=== PATIENT | male | born 1955 | race Caucasian/White ===

== ENCOUNTER 2017-02-09 15:12 | Emergency (ER) | payer BC ==
--- OUTSIDE RECORDS SUMMARY | 2017-02-09 15:30 | XMS REPORT | Continuity of Care Document ---
:1955 Author Organization [facility] ([facility]) Address [address] [place] [address] Phone [phone] Care Team Providers Name Role Phone Unavailable Primary Care Provider Unavailable Source Comments This disclosure is being made pursuant to the Care Everywhere program, applicable federal and state laws, and may not contain all informaitonavailable regarding this patient.[facility] ([facility]) Active Allergies and Adverse Reactions Not on File Current Medications Not on file Active Problems Not on file Social History Tobacco Use Types Packs/Day Years Used Date Never Assessed Plan of Care Health Maintenance Due Date Last Done Comments HCV Screening 1955 Hepatitis B Vaccine (1 of 3 - Primary Series) 1955 Tdap Vaccine 1964 Lipid Disorder Screening 1971 Td Vaccine 1971 Colonoscopy 2003 Prostate Cancer Screening 2003 Zoster Vaccine 2013 Influenza Vaccine: Seasonal (#1) 05/05/2016 Results from Last 3 Months Not on file
--- OUTSIDE RECORDS SUMMARY | 2017-02-09 15:30 | XMS REPORT | Summary of Care ---
:[address] [facility] Address [address] [place] [id number]- Care Team Providers Name Role Phone Physician, Primary Care Primary Care Physician Unavailable Encounter Date(s): 03/03/16 - 03/04/16 [facility] [address] [place] [id number] [facility] Discharge Diagnosis: Altered mental status Final: Type 2 diabetes mellitus with hyperglycemia Final: Altered mental status, unspecified Final: Dizziness and giddiness Final: Essential (primary) hypertension Final: Morbid (severe) obesity due to excess calories Final: Body mass index (BMI) 40.0-44.9, adult Final: Dietary counseling and surveillance Final: Unspecified abnormal findings in urine Final: Nicotine dependence, unspecified, uncomplicated Discharge Disposition: [facility]Trans to Home Care with Home Health Attending Physician: Jon Blackwell MD Referring Physician: Jonathan Valderrama MD Vital Signs Most recent to oldest 1 2 3 [Reference Range]: Temperature Temporal Artery 36.6 DegC 36.4 DegC 36.4 DegC [36-38 DegC] (03/04/16 3:00 PM) (03/04/16 11:00 AM) (03/04/16 7:00 AM) Heart Rate Monitored [60-100 86 bpm 66 bpm 72 bpm bpm] (03/04/16 3:00 PM) (03/04/16 11:00 AM) (03/04/16 7:00 AM) Respiratory Rate [12-20 19 br/min 20 br/min 20 br/min br/min] (03/04/16 3:00 PM) (03/04/16 11:00 AM) (03/04/16 7:00 AM) SpO2 96 % 97 % 97 % (03/04/16 3:00 PM) (03/04/16 11:00 AM) (03/04/16 7:00 AM) SpO2 Location Right hand Right hand Right hand (03/04/16 3:00 PM) (03/04/16 11:00 AM) (03/04/16 7:00 AM) Blood Pressure [90-130/60-90 110/74mmHg 110/74mmHg 96/74mmHg mmHg] (03/04/16 5:36 PM) (03/04/16 4:21 PM) (03/04/16 3:00 PM) Mean Arterial Pressure Monitor 72 mmHg 59 mmHg 71 mmHg Measure (03/03/16 4:15 PM) (03/03/16 11:40 AM) (03/03/16 8:00 AM) Blood Pressure Location Left arm Left arm Left arm (03/04/16 3:00 PM) (03/04/16 11:00 AM) (03/04/16 7:00 AM) Most recent to oldest 1 2 3 [Reference Range]: Height/Length Measured 179 cm (03/03/16 6:12 AM) Weight Estimated 131.8 kg (03/03/16 3:25 AM) Weight Dosing 129.60 kg1 127.30 kg 127.30 kg2 (03/03/16 6:35 AM) (03/03/16 6:12 AM) (03/03/16 3:54 AM) Weight Measured 129.6 kg (03/03/16 6:12 AM) BSA Measured 2.44 m2 (03/03/16 6:12 AM) Body Mass Index Measured 40.45 kg/m2 (03/03/16 6:12 AM) 1Result Comment: This result was because the dosing weight was either not entered or it is>30 days old. This result is based off: Weight Measured March 03, 2016 06:12:00 CDT by Keisha Hdez RN2Result Comment: This result was because the dosing weight was either not entered or it is>30 days old. This result is based off: Weight Estimated March 03, 2016 03:25:00 CDT by Nina Sampson RN Problem List Condition Effective Dates Status Health Status Informant Asthma(Confirmed) Active Hypertension(Confirmed) Active Allergies, Adverse Reactions, Alerts Substance Reaction Severity Status penicillin unknown Active Medications Asmanex Twisthaler 120 Dose 220 mcg/inh inhalation aerosol powder 2 puff(s), Inhale, HS, # 1 boxes, 0 Refill(s), Start Date: 03/03/16 6:20:00 CDT Start Date: 03/03/16 Status: Orderedaspirin 81 mg oral tablet 1 tab(s), Oral, Daily, # 30 tab(s), 0 Refill(s), Start Date: 03/04/16 16:08:00 CDT Start Date: 03/04/16 Status: Orderedatenolol 50 mg, Oral, qPM, 0 Refill(s), Start Date: 03/03/16 6:09:00 CDT Start Date: 03/03/16 Status: Orderedcyclobenzaprine 10 mg, Oral, TID, PRN pain moderate 4-7, 0 Refill(s), Start Date: 03/03/16 6:13: 00 CDT Start Date: 03/03/16 Stop Date: 03/04/16 Status: DiscontinueddiphenhydrAMINE 25 mg, Oral, HS, 0 Refill(s), Start Date: 03/03/16 6:20:00 CDT Start Date: 03/03/16 Status: Ordereddocusate sodium 100 mg oral capsule 1 cap(s), Oral, HS, PRN for constipation, # 20 cap(s), 0 Refill(s), Start Date: 03/03/16 6:19:00 CDT Start Date: 03/03/16 Status: Orderedfelodipine 2.5 mg, Oral, Daily, 0 Refill(s), Start Date: 03/03/16 6:10:00 CDT Start Date: 03/03/16 Status: Orderedibuprofen 800 mg, Oral, TID, PRN pain moderate 4-7, 0 Refill(s), Start Date: 03/03/16 6:11 :00 CDT Start Date: 03/03/16 Stop Date: 03/04/16 Status: DiscontinuedLipitor 40 mg oral tablet 1 tab(s), Oral, HS, # 30 tab(s), 0 Refill(s), Start Date: 03/04/16 16:08:00 CDT Start Date: 03/04/16 Status: Orderedlisinopril 40 mg, Oral, Daily, 0 Refill(s), Start Date: 03/03/16 6:12:00 CDT Start Date: 03/03/16 Status: OrderedmetFORMIN 500 mg oral tablet 0.5 tab(s), Oral, BIDMEALS, # 30 tab(s), 0 Refill(s), Start Date: 03/04/16 16:08 :00 CDT Start Date: 03/04/16 Status: OrderedOne Touch Delica Lancets 100 EA, Subcutaneous, Daily, dx E118, # 1 boxes, 0 Refill(s), Supply Special Instructions: dx E118 Start Date: 03/04/16 Stop Date: 06/02/16 Status: OrderedOne Touch Verio IQ Test Strips 100 EA, Subcutaneous, Daily, dx E118, # 1 boxes, 0 Refill(s), Supply Special Instructions: dx E118 Start Date: 03/04/16 Stop Date: 06/02/16 Status: Orderedpantoprazole 40 mg, Oral, Daily, 0 Refill(s), Start Date: 03/03/16 6:14:00 CDT Start Date: 03/03/16 Status: OrderedSenna Lax 8.6 mg, Oral, HS, 0 Refill(s), Start Date: 03/03/16 6:17:00 CDT Start Date: 03/03/16 Status: OrderedTylenol 325 mg oral capsule 325 mg, Oral, q4hr, PRN pain mild 1-3, 0 Refill(s), Start Date: 03/04/16 16:08: 00 CDT Start Date: 03/04/16 Status: Ordered Results Patient Viewable Results Most recent to oldest [Reference Range]: 1 2 WBC [4.8-10.8 thou/mm3] 7.0 thou/mm3 (03/03/16 4:21 AM) RBC [4.60-6.00 Mil/mm3] 5.53 Mil/mm3 (03/03/16 4:21 AM) Hgb [14.0-18.0 g/dL] 15.9 g/dL (03/03/16 4:21 AM) Hct [42.0-52.0 %] 45.2 % (03/03/16 4:21 AM) MCV [80.0-94.0 fL] 81.7 fL (03/03/16 4:21 AM) MCH [25.0-38.0 pg/cell] 28.8 pg/cell (03/03/16 4:21 AM) MCHC [31.0-37.0 g/dL] 35.2 g/dL (03/03/16 4:21 AM) RDW [1.0-48.0 fL] 40.9 fL (03/03/16 4:21 AM) Platelet [130-400 thou/mm3] 182 thou/mm3 (03/03/16 4:21 AM) Neutrophils % Auto [50.0-75.0 %] 53.9 % (03/03/16 4:21 AM) Immature Granulocyte Auto [0.1-2.0 %] 0.3 % (03/03/16 4: AM) Lymphocytes % Auto [15.0-41.0 %] 37.6 % (03/03/16 4:21 AM) Monocytes % Auto [2.0-10.0 %] 6.6 % (03/03/16 4:21 AM) Eosinophils % Auto [0.0-6.0 %] 1.0 % (03/03/16 4:21 AM) Basophil % Auto [0.0-1.0 %] 0.6 % (03/03/16 4:21 AM) Neutrophils Absolute [1.5-5.9 thou/mm3] 3.8 thou/mm3 (03/03/16 4:21 AM) Immature Gran Absolute [0.01-0.03 thou/mm3] 0.02 thou/mm3 (03/03/16 4:21 AM) Lymphocytes Absolute [1.5-4.0 thou/mm3] 2.6 thou/mm3 (03/03/16 4:21 AM) Monocytes Absolute [0.0-0.9 thou/mm3] 0.5 thou/mm3 (03/03/16 4:21 AM) Eosinophil Absolute [0.0-0.7 thou/mm3] 0.1 thou/mm3 (03/03/16 4:21 AM) Basophil Absolute [0.0-0.2 thou/mm3] 0.0 thou/mm3 (03/03/16 4:21 AM) Sodium Lvl [135-144 mEq/L] 136 mEq/L 131 mEq/L (03/04/16 5:52 AM) *LOW* (03/03/16 4:21 AM) Potassium Lvl [3.3-4.8 mEq/L] 4.1 mEq/L 4.4 mEq/L (03/04/16 5:52 AM) (03/03/16 4:21 AM) Chloride Lvl [98-107 mEq/L] 103 mEq/L 95 mEq/L (03/04/16 5:52 AM) *LOW* (03/03/16 4:21 AM) Bicarbonate Lvl [22-30 mmol/L] 19 mmol/L 21 mmol/L *LOW* *LOW* (03/04/16 5:52 AM) (03/03/16 4:21 AM) Anion Gap [10.0-20.0] 18.1 19.4 (03/04/16 5:52 AM) (03/03/16 4:21 AM) Glucose Lvl [70-108 mg/dL] 173 mg/dL 258 mg/dL *HI* *HI* (03/04/16 5:52 AM) (03/03/16 4:21 AM) BUN [7-21 mg/dL] 20 mg/dL 36 mg/dL (03/04/16 5:52 AM) *HI* (03/03/16 4:21 AM) Creatinine Lvl [0.50-1.20 mg/dL] 1.02 mg/dL 1.78 mg/dL (03/04/16 5:52 AM) *HI* (03/03/16 4:21 AM) BUN/Creat Ratio 19.6 20.2 *NA* *NA* (03/04/16 5:52 AM) (03/03/16 4:21 AM) eGFR AA [>=60] >60 47 (03/04/16 5:52 AM) *LOW* (03/03/16 4:21 AM) eGFR JESSICA [>=60] >60 39 (03/04/16 5:52 AM) *LOW* (03/03/16 4:21 AM) Calcium Lvl [8.6-10.2 mg/dL] 8.8 mg/dL 9.2 mg/dL (03/04/16 5:52 AM) (03/03/16 4:21 AM) Total Protein [6.4-8.3 g/dL] 7.5 g/dL (03/03/16 4:21 AM) Albumin Lvl [3.5-5.2 g/dL] 3.7 g/dL (03/03/16 4:21 AM) Globulin 3.8 *NA* (03/03/16 4:21 AM) A/G Ratio [0.9-1.8] 1.0 (03/03/16 4:21 AM) Bilirubin Total [0.1-1.0 mg/dL] 0.6 mg/dL (03/03/16 4:21 AM) Alkaline Phosphatase [39-129 unit/L] 97 unit/L (03/03/16 4:21 AM) AST [0-39 unit/L] 31 unit/L (03/03/16 4:21 AM) ALT [0-40 unit/L] 26 unit/L (03/03/16 4:21 AM) Lactic Acid Lvl [0.5-2.2 mmol/L] 1.5 mmol/L (03/03/16 4:21 AM) Glycated Hemoglobin [4.8-6.0 %] 13.8 % *HI* (03/04/16 5:52 AM) Estimated Average Glucose 349 mg/dL *NA* (03/04/16 5:52 AM) Cholesterol Total [0-200 mg/dL] 253 mg/dL *HI* (03/03/16 4:21 AM) Triglyceride [0-199 mg/dL] 248 mg/dL *HI* (03/03/16 4:21 AM) HDL Cholesterol [40-100 mg/dL] 31 mg/dL *LOW* (03/03/16 4:21 AM) LDL Cholesterol (Direct) [0-129 mg/dL] 180 mg/dL *HI* (03/03/16 4:21 AM) Non HDL Cholesterol [0-159 mg/dL] 222 mg/dL *HI* (03/03/16 4:21 AM) Myoglobin [0-74 ng/mL] 199 ng/mL1 *HI* (03/03/16 4:21 AM) Troponin-I [0.00-0.04 ng/mL] <0.01 ng/mL (03/03/16 4:21 AM) TSH [0.50-3.00 mIU/L] 0.77 mIU/L (03/03/16 4:21 AM) Vitamin B12 Lvl [211-911 pg/mL] 942 pg/mL *HI* (03/04/16 5:52 AM) Folate Lvl, Serum [>=5.5 ng/mL] 21.6 ng/mL (03/03/16 4:21 AM) Estimated Creatinine Clearance 102.27 mL/min 58.04 mL/min (03/04/16 6:49 AM) (03/03/16 6:35 AM) Ethanol Lvl [0-9 mg/dL] <10 mg/dL (03/03/16 4:21 AM) Acetaminophen Lvl [10-20 mcg/mL] <1 mcg/mL *LOW* (03/03/16 4:21 AM) Salicylate Lvl [0.0-25.0 mg/dL] <0.3 mg/dL *LOW* (03/03/16 4:21 AM) Urine Amphetamine Scrn Negative (03/03/16 4:14 AM) Urine Barbiturate Scrn Negative (03/03/16 4:14 AM) Urine Benzodiazepine Scrn Negative (03/03/16 4:14 AM) Urine Cannabinoid Met Scrn Negative (03/03/16 4:14 AM) Urine Cocaine Met Scrn Negative (03/03/16 4:14 AM) Urine Methadone Scrn Negative (03/03/16 4:14 AM) Urine Opiate Scrn Negative (03/03/16 4:14 AM) Urine Phencyclidine Scrn Negative (03/03/16 4:14 AM) Urine Propoxyphene Scrn Negative (03/03/16 4:14 AM) UA Color [Yellow] Yellow (03/03/16 4:14 AM) Urine Clarity [Clear] Clear (03/03/16 4:14 AM) Specific [place] [1.001-1.020] 1.010 (03/03/16 4:14 AM) Urine pH [5.0-7.0] 5.0 (03/03/16 4:14 AM) Ketones [Negative] Negative (03/03/16 4:14 AM) Bilirubin [Negative] Negative (03/03/16 4:14 AM) Urine Protein [Negative] Negative (03/03/16 4:14 AM) Glucose [Negative] Trace *ABN* (03/03/16 4:14 AM) Urine HGB [Negative] Trace *ABN* (03/03/16 4:14 AM) Urobilinogen [< 2.0 mg/dL] <2.0 *NA* (03/03/16 4:14 AM) Nitrite [Negative] Negative (03/03/16 4:14 AM) Leuk Esterase [Negative] Negative (03/03/16 4:14 AM) Urine WBC [0-5] 0-5 (03/03/16 4:14 AM) Urine RBC [0-2] 0-2 (03/03/16 4:14 AM) Squamous Epi [0-5] 0-5 (03/03/16 4:14 AM) Mucus [None Seen] Trace *NA* (03/03/16 4:14 AM) Whole Blood Glucose [70-108 mg/dL] 251 mg/dL2 *HI* (03/03/16 3:34 AM) 1Result Comment: Positive myoglobin is not diagnostic of myocardial injury but may also be seen in skeletal muscle trauma, renal failure, and noncardiac disorders. Clinical correlation is needed. (Non-Cardiac Reference Range=0 - 110 ng/mL)2Result Comment: Warehouse Attendant: [id number] Aroldo Pace RNMicrobiology Reports TEST:MRSA Screen STATUS:Auth (Verified) BODY SITE: SOURCE:Nares COLLECTED DATE/TIME:03/03/16 6:25 AMFINAL REPORTNegative for MRSA by PCRTEST:Blood Culture STATUS:Auth (Verified) BODY SITE: SOURCE:Blood COLLECTED DATE/TIME:03/03/16 4:23 AMFINAL REPORTNo growth at 5 DaysTEST: Blood Culture STATUS:Auth (Verified) BODY SITE: SOURCE:Blood COLLECTED DATE/TIME:03/03/16 4:21 AMFINAL REPORTNo growth at 5 DaysTEST: Urine Culture STATUS:Auth (Verified) BODY SITE: SOURCE:Urine COLLECTED DATE/TIME:03/03/16 3:35 AMFINAL REPORTNo growth 48 hours Immunizations No data available for this section Procedures Procedure Date Related Diagnosis Body Site Cataract extraction Social History No data available for this section Assessment and Plan No data available for this section
[2017-02-09 15:42] LABS: Hematocrit 40.3 % (42.0-52.0); Hemoglobin 13.6 gm/dL (13.5-18.0); Mean Cell Volume 81.1 fl (78-100); Mean Corpuscular Hemoglobin 27.4 pg (27-31); Mean Corpuscular Hgb Conc 33.7 g/dl (32-36); Neutrophil # 3.3 K/mm3 (1.3-6.0); Neutrophil % 61.8 % (42-75.0); Platelet Count 174 K/mm3 (150-450); Red Blood Count 4.97 M/mm3 (4.7-6.0); Red Cell Distribution Width 14.3 % (11.5-14.0); White Blood Count 5.3 K/mm3 (4.0-10.5)
[2017-02-09 15:54] LABS: Albumin * 3.5 gm/dl (3.4-5.0); Anion Gap 13.1 mmol/L (6.8-13.8); BUN/Creatinine Ratio 10.5 (9.0-21.6); Bilirubin, Total 0.4 mg/dL (0.0-1.1); Ca. Corrected For Albumin 9.5 mg/dL (8.4-10.2); Calcium * 9.4 mg/dL (7.9-10.9); Carbon Dioxide 28.2 mmol/L (24-32.6); Potassium 4.3 mmol/L (3.4-4.6); Total Protein 7.8 gm/dL (6.2-8.2)
[2017-02-09 16:24] LABS: Urine Bilirubin Negative (NEGATIVE); Urine Ketone Negative (NEGATIVE); Urine Nitrite Negative (NEGATIVE); Urine Protein Negative (NEGATIVE); Urine Urobilinogen Normal (NORMAL)
[2017-02-09 16:48] LABS: Urine Appearance Clear; Urine Bacteria 2+; Urine Blood 10 /ul (NEGATIVE); Urine Color Yellow; Urine RBC 0-5 /hpf (0-5); Urine WBC 0-5 /hpf (0-5)
[2017-02-09 17:18] VITALS: BP 128/86
--- NOTE | 2017-02-09 17:39 | ERNOTE ---
Medical Problem HPI - Narrative Date of Service: 02/09/17 - General Chief Complaint: General Assessment Time Seen by Provider: 02/09/17 15:23 Source: patient Exam Limitations: no limitations - Immun/Allergies/Home Medications Immunizations: IMMUNIZATION HX Immunizations Up to Date Yes History of Influenza Vaccine Yes Hx Pneumococcal Vaccination Yes Allergies/Adverse Reactions: Allergies latex Allergy (Unknown, Verified 02/09/17 15:19) Hives Penicillins Allergy (Unknown, Verified 02/09/17 15:19) Hives Home Medications: HOME MEDICATIONS Acetaminophen [Tylenol Arthritis] 650 mg PO BID 05/31/16 [Last Taken Unknown] Albuterol Sulfate [Proair Hfa] 2 spr INH QID PRN 05/31/16 [Last Taken Unknown] Aspirin [Aspirin EC] 81 mg PO DAILY 05/31/16 [Last Taken Unknown] Atorvastatin Calcium 40 mg PO HS 05/31/16 [Last Taken Unknown] Calcium/Magnesium/Vit D3 [Calcium 500 mg Tablet] 1 each PO BID 05/31/16 [Last Taken Unknown] Docusate Sodium [Colace] 100 mg PO DAILY 05/31/16 [Last Taken Unknown] Fluticasone Propionate [Flovent Diskus] 50 mcg IH DAILY 05/31/16 [Last Taken Unknown] Furosemide [Lasix] 60 mg PO DAILY 05/31/16 [Last Taken Unknown] Glimepiride [Amaryl] 1 mg PO DAILY 05/31/16 [Last Taken Unknown] Ibuprofen [Motrin] 800 mg PO TID PRN 05/31/16 [Last Taken Unknown] Lisinopril [Zestril] 40 mg PO BID 05/31/16 [Last Taken Unknown] Metoprolol Tartrate [Lopressor] 25 mg PO BID 05/31/16 [Last Taken Unknown] Mometasone Furoate [Asmanex] 220 mcg IH HS 05/31/16 [Last Taken Unknown] Pantoprazole Sodium 40 mg PO DAILY 05/31/16 [Last Taken Unknown] Polyethylene Glycol 3350 [Miralax] 17 gm PO DAILY 05/31/16 [Last Taken Unknown] Spironolactone [Aldactone] 12.5 mg PO DAILY 05/31/16 [Last Taken Unknown] buPROPion HCL [Wellbutrin XL] 300 mg PO DAILY 05/31/16 [Last Taken Unknown] metFORMIN HCL [Metformin HCl ER] 500 mg PO BID 05/31/16 [Last Taken Unknown] Calcium Carbonate [Calcium] 500 mg PO BID 02/09/17 [Last Taken Unknown] Ciprofloxacin HCl [Cipro] 500 mg PO BID #14 tablet 02/09/17 [Last Taken Unknown] Cyclobenzaprine HCl [Flexeril] 10 mg PO TID PRN 02/09/17 [Last Taken Unknown] - History of Present History Narrative: Patient comes to the ED for painful urination. He has been having a few days of painful urination. He went to the walk in clinic and was sent here for high blood sugars. He states he has not been eating well and has not been exercising or watching his blood sugars but taking his meds. He relates no fever, abdominal pain, flank pain or other acute problems. He states he may have noticed monique eblood in his urine also. Timing: intermittent Severity: mild Modifying Factors - (Improves): Present: other - nothign Modifying Factors - (Worsens): Present: other - urinating Review of Systems - Review of Systems Constitutional: Absent: fever ENT: Absent: sore throat Respiratory: Absent: shortness of breath Cardiology: Absent: chest pain Gastrointestinal/Abdominal: Absent: abdominal pain Genitourinary: Present: See HPI Musculoskeletal: Present: other - 2 weeks of left knee pain, no injury Skin: Absent: rash Neurological: Absent: weakness - Patient's Past Medical History Patient History - Medical: Anemia, Diabetes Type 2, GERD, Obesity Patient History - Cardiac/Respiratory: Asthma, Hypertension Patient History - Cancer: No Hx of Cancer Patient History - Surgical Procedures: Cataracts, Colonoscopy, EGD - Social History Living Situations: home Psych History: No pertinent hx Alcohol Use: rarely Drug Use: none - Immunizations Immunizations Up to Date: Yes Hx Pneumococcal Vaccination: Yes History of Influenza Vaccine: Yes Physical Exam - Physical Exam General Appearance: Present: alert, no apparent distress Eye Exam: Normal inspection: bilateral, PERRL: bilateral Ears, Nose, Throat: Present: normal ENT inspection Neck: Present: normal inspection Respiratory: Present: no respiratory distress, no accessory muscle use, lungs clear Cardiovascular/Chest: Present: regular rate, rhythm, normal peripheral pulses Gastrointestinal/Abdominal: Present: normal bowel sounds, nontender, soft Male Genitals Exam: Present: other - there is some excoriation of the foreskin but no clear mass. No clear other gross abnotmality. No abscess or Jessica's Back Exam: Absent: CVA tenderness (R), CVA tenderness (L) Extremity Exam: Present: other - left knee without redness or findings of infection Neurological Exam: Present: alert, normal mood/affect, no motor/sensory deficits Skin Exam: Absent: skin rash ED Progress - Results and Orders Patient's Lab Results:: I have reviewed the patient's lab results. - Vital Signs Patient's Vital Signs:: I have reviewed the patient's vital signs. Vital Signs: Vital Signs 02/09/17 02/09/17 02/09/17 15:14 15:46 17:14 Temperature 36.8 C Pulse Rate 81 83 82 Respiratory 14 16 15 Rate Blood Pressure 120/76 134/83 128/86 O2 Sat by Pulse 95 94 94 Oximetry - Progress/Reassessment Chief Complaint: General Assessment Progress Note-Subjective: 02/09/17 17:[address] Lundberg, she recommends TSH and HgbA1c for an office appt tomorrow at 10:30. No ketones in urine. No suggestion of HONKS or DKA. Stable , no suggestion of pyelo, sepsis or toxicity. Stable and wishing to go home. I discussed warnign signs and reasons to return as well as the need for close f/ u. Departure - Departure Clinical Impression: UTI (urinary tract infection), Hyperglycemia Disposition: Home self-care Condition: Stable Instructions: Urinary Tract Infection, Adult, [id number] Additional Instructions: You are to go to Elvis Lundberg's office for an appointment at 10:30am tomorrow. Be there a little early. Fluids. Antibiotics as directed. Return for fever, vomiting, flank pain or if your condition worsens or changes in any way. Referrals: Tracey Lundberg MD [Primary Care Provider] - Prescriptions: Ciprofloxacin HCl [Cipro] 500 mg PO BID #14 tablet
== END 2017-02-09 17:37 | disposition home or self-care (01) ==
LOC: ER 15:12
DX: N39.0 Urinary tract infection, site not specified (principal); R73.9 Hyperglycemia, unspecified; D64.9 Anemia, unspecified; E11.9 Type 2 diabetes mellitus without complications; K21.9 Gastro-esophageal reflux disease without esophagitis; I10 Essential (primary) hypertension

== ENCOUNTER 2017-10-15 20:51 | Emergency (ER) | payer BC, MEDICAID ==
[2017-10-15 21:23] LABS: Hematocrit 41.5 % (42.0-52.0); Hemoglobin 13.6 gm/dL (13.5-18.0); Mean Corpuscular Hemoglobin 26.9 pg (27-31); Mean Corpuscular Hgb Conc 32.8 g/dl (32-36); Mean Platelet Volume 9.5 fl (6.0-9.5); Neutrophil # 4.2 K/mm3 (1.3-6.0); Platelet Count 213 K/mm3 (150-450); Red Blood Count 5.06 M/mm3 (4.7-6.0); Red Cell Distribution Width 15.3 % (11.5-14.0); White Blood Count 6.4 K/mm3 (4.0-10.5)
[2017-10-15 21:41] LABS: Albumin * 3.7 gm/dl (3.4-5.0); Anion Gap 16.7 mmol/L (6.8-13.8); BUN/Creatinine Ratio 9.6 (9.0-21.6); Bilirubin, Total 0.3 mg/dL (0.0-1.1); Ca. Corrected For Albumin 9.1 mg/dL (8.4-10.2); Calcium * 9.2 mg/dL (7.9-10.9); Carbon Dioxide 24.3 mmol/L (24-32.6); Total Protein 8.3 gm/dL (6.2-8.2)
[2017-10-15 21:50] LABS: Prothrombin Time (Patient) 10.1 Seconds (9.0-11.0)
[2017-10-15 21:51] LABS: INR 1.01 INR (0.90-1.10); Partial Thrombolplastin Time 28.4 Seconds (24-32)
[2017-10-15 21:52] LABS: Urine Bilirubin Negative (NEGATIVE); Urine Ketone Negative (NEGATIVE); Urine Nitrite Negative (NEGATIVE); Urine Protein Negative (NEGATIVE); Urine Specific Gravity <=1.005 SP.GR. (1.005-1.030); Urine Urobilinogen Normal (NORMAL); Urine pH 5.5 pH (5.0-7.0)
[2017-10-15 21:53] LABS: Urine Appearance Clear; Urine Bacteria None Seen; Urine Blood Negative /ul (NEGATIVE); Urine Color Pale Yellow; Urine RBC 0-5 /hpf (0-5); Urine WBC 0-5 /hpf (0-5)
--- NOTE | 2017-10-15 21:57 | ERNOTE ---
<Jacquelin Flanagan - Last Filed: 10/15/17 22:25> GI Bleeding/Rectal Pain ER Date of Service: 10/15/17 Presenting Symptoms: rectal bleeding Time Seen by Provider: 10/15/17 21:01 Source: patient Exam Limitations: no limitations Immunizations: IMMUNIZATION HX Immunizations Up to Date Yes History of Influenza Vaccine No Hx Pneumococcal Vaccination Yes Allergies/Adverse Reactions: Allergies latex Allergy (Unknown, Verified 02/09/17 15:19) Hives Penicillins Allergy (Unknown, Verified 02/09/17 15:19) Hives Home Medications: HOME MEDICATIONS Acetaminophen [Tylenol Arthritis] 650 mg PO BID 05/31/16 [Last Taken Unknown] Albuterol Sulfate [Proair Hfa] 2 spr INH QID PRN 05/31/16 [Last Taken Unknown] Aspirin [Aspirin EC] 81 mg PO DAILY 05/31/16 [Last Taken Unknown] Atorvastatin Calcium 40 mg PO HS 05/31/16 [Last Taken Unknown] Docusate Sodium [Colace] 100 mg PO DAILY 05/31/16 [Last Taken Unknown] Fluticasone Propionate [Flovent Diskus] 50 mcg IH DAILY 05/31/16 [Last Taken Unknown] Furosemide [Lasix] 60 mg PO DAILY 05/31/16 [Last Taken Unknown] Glimepiride [Amaryl] 4 mg PO DAILY 05/31/16 [Last Taken Unknown] Ibuprofen [Motrin] 800 mg PO TID PRN 05/31/16 [Last Taken Unknown] Lisinopril [Zestril] 40 mg PO BID 05/31/16 [Last Taken Unknown] Metoprolol Tartrate [Lopressor] 25 mg PO BID 05/31/16 [Last Taken Unknown] Mometasone Furoate [Asmanex] 220 mcg IH HS 05/31/16 [Last Taken Unknown] Pantoprazole Sodium 40 mg PO DAILY 05/31/16 [Last Taken Unknown] Polyethylene Glycol 3350 [Miralax] 17 gm PO DAILY 05/31/16 [Last Taken Unknown] Spironolactone [Aldactone] 12.5 mg PO DAILY 05/31/16 [Last Taken Unknown] buPROPion HCL [Wellbutrin XL] 300 mg PO DAILY 05/31/16 [Last Taken Unknown] metFORMIN HCL [Metformin HCl ER] 500 mg PO BID 05/31/16 [Last Taken Unknown] Calcium Carbonate [Calcium] 500 mg PO BID 02/09/17 [Last Taken Unknown] Cyclobenzaprine HCl [Flexeril] 10 mg PO TID PRN 02/09/17 [Last Taken Unknown] Cholecalciferol (Vitamin D3) [Vitamin D] 2,000 unit PO 10/15/17 [Last Taken Unknown] Empagliflozin [Jardiance] 25 mg PO DAILY 10/15/17 [Last Taken Unknown] Tolnaftate 15 gm TP BID 10/15/17 [Last Taken Unknown] Narrative: Pt is a 62 year old male who presented to the ER with c/o bright red blood per rectum. He states that he has this on and off for the past 3 weeks as well as periods of diarrhea and constipation. He has had a colonoscopy in the past which he states noted 2 polyps. Does endorse a prior GIB which he states was "many, many years ago" as well as external hemorrhoids. Denies abdominal pain, lightheadedness, dizziness, or SOB. Last BM was today he states that he always has to strain very hard and has rectal pain with defecation. Date (Duration): 09/28/17 Time (Timing): 19:00 Timing: intermittent Quality/Severity: Present: moderate Date of Last Bowel Movement: 10/15/17 Nausea/Vomiting: Present: none Abdominal Pain: Present: none Rectal Bleeding: Present: without stool Associated Symptoms: Reports: constipation/hard stools, rectal pain, diarrhea. Denies: fainting, dizziness, light headedness Review of Systems - Review of Systems Constitutional: Absent: fever, chills, diaphoresis, weakness Respiratory: Absent: shortness of breath, cough Cardiology: Absent: chest pain, palpitations Gastrointestinal/Abdominal: Present: See HPI, diarrhea, constipation. Absent: nausea, vomiting, abdominal pain Genitourinary: Absent: frequency, pain, dysuria - Patient's Past Medical History Patient History - Medical: Anemia, Diabetes Type 2, GERD, Obesity Patient History - Cardiac/Respiratory: Asthma, Hypertension, Hyperlipidemia Patient History - Cancer: No Hx of Cancer Patient History - Surgical Procedures: Cataracts, Colonoscopy, EGD, Orthopedic Patient History - Other: None - Social History Living Situations: home Psych History: No pertinent hx - Immunizations Immunizations Up to Date: Yes Hx Pneumococcal Vaccination: Yes History of Influenza Vaccine: No Physical Exam - Physical Exam General Appearance: Present: wd/wn, alert, no apparent distress Respiratory: Present: no respiratory distress, no accessory muscle use Cardiovascular/Chest: Present: regular rate, rhythm, normal peripheral pulses Gastrointestinal/Abdominal: Present: normal bowel sounds, nontender, nondistended, soft Rectal Exam: Present: hemorrhoids, other - large amount of blood present Neurological Exam: Present: alert, oriented, normal mood/affect Skin Exam: Present: normal color, warm/dry ED Progress - Results and Orders Patient's Lab Results:: I have reviewed the patient's lab results. - Vital Signs Patient's Vital Signs:: I have reviewed the patient's vital signs. Vital Signs: Vital Signs 10/15/17 10/15/17 10/15/17 20:54 21:14 21:15 Temperature 36.6 C 36.6 C Pulse Rate 92 92 92 Respiratory 20 20 Rate Blood Pressure 129/90 129/90 - Progress/Reassessment Chief Complaint: GI Bleed Progress:: Unchanged - Transfer of Care Physician Sign Out: Jacquelin Flanagan Brief History: rectal bleeding awaiting CT anticipating admission Receiving Physician: Zac Gutierrez Pending Results: CT/MRI results Expected Disposition: Admit Departure Clinical Impression: GIB (gastrointestinal bleeding) Qualifiers: GI bleed type/associated pathology: unspecified gastrointestinal hemorrhage type Qualified Code(s): K92.2 - Gastrointestinal hemorrhage, unspecified - Departure Disposition: [facility] Condition: Stable <Zac Gutierrez - Last Filed: 10/16/17 04:15> GI Bleeding/Rectal Pain ER Immunizations: IMMUNIZATION HX Immunizations Up to Date Yes History of Influenza Vaccine No Hx Pneumococcal Vaccination Yes ED Progress - Vital Signs Vital Signs: Vital Signs 10/15/17 10/15/17 10/15/17 20:54 21:14 21:15 Temperature 36.6 C 36.6 C Pulse Rate 92 92 92 Respiratory 20 20 Rate Blood Pressure 129/90 129/90 O2 Sat by Pulse Oximetry 10/15/17 10/15/17 10/16/17 23:02 23:29 01:00 Temperature 36.6 C Pulse Rate 90 88 Respiratory 18 14 Rate Blood Pressure 124/89 130/79 O2 Sat by Pulse 97 90 93 Oximetry 10/16/17 10/16/17 10/16/17 01:11 01:41 02:11 Temperature Pulse Rate 86 86 83 Respiratory 13 12 10 L Rate Blood Pressure 127/74 120/78 123/75 O2 Sat by Pulse 90 95 94 Oximetry 10/16/17 02:41 Temperature Pulse Rate 77 Respiratory 11 L Rate Blood Pressure 127/76 O2 Sat by Pulse 97 Oximetry - CT/Ultrasound CT/Ultrasound Narrative: CT of the abdomen and pelvis demonstrates some mild prominence of the rectal wall but partially collapsed containing fecal material probably artifactual minimal proctitis is not excluded mild diverticulosis with no diverticulitis bunch of gallstones degenerative changes no other abnormalities Plan - Plan Plan: The patient is hemodynamically stable, he's been bleeding for several weeks, hemoglobin and hematocrit are well within the normal range. I truly believe that he would be safe to follow up as an outpatient. He is going to speak with his family doctor today and last for referral to a surgeon. I instructed him to take increased doses of the Colace. He needs to take 14 times a day. He will return if he gets increased bleeding, dizziness or any new concerning symptoms. I have suggested that he take some ibuprofen, 600 mg every 6 hours, in case this is proctitis. Avoid aspirin as this may make bleeding worse
[2017-10-15] MEDS ORDERED: NORMAL SALINE 1,000 ML IV PRN (22:52)
[2017-10-15] MEDS ORDERED: NORMAL SALINE 1,000 ML IV ONE (22:59)
[2017-10-15] MEDS ORDERED: DIATRIZOATE MEGLUMINE, SODIUM 30 ML BTL ONE (23:00)
[2017-10-16] MEDS ORDERED: CALCIUM GLUCONATE 4.65 MEQ/10 ML VIAL IV ONE (03:59)
[2017-10-16 04:20] VITALS: BP 143/88
== END 2017-10-16 04:20 | disposition home or self-care (01) ==
LOC: ER 20:51
DX: E11.9 Type 2 diabetes mellitus without complications; K92.2 Gastrointestinal hemorrhage, unspecified

== ENCOUNTER 2020-06-21 21:19 | Inpatient (IN) ==
--- NOTE | 2020-06-21 21:43 | ERNOTE ---
Trauma/Assault HPI - Narrative Date of Service: 06/21/20 - General Stated Complaint: AMS FALL Time Seen by Provider: 06/21/20 21:26 Source: patient Exam Limitations: no limitations - Immun/Allergies/Home Medications Immunizations: IMMUNIZATION HX Immunizations Up to Date Yes History of Influenza Vaccine Yes Hx Pneumococcal Vaccination No Allergies/Adverse Reactions: Allergies latex Allergy (Unknown, Verified 06/20/20 20:27) Hives Penicillins Allergy (Unknown, Verified 06/20/20 20:27) Hives cephalexin Adverse Reaction (Intermediate, Verified 06/20/20 20:27) diarrhea erythromycin base Adverse Reaction (Intermediate, Verified 06/20/20 20:27) diarrhea Home Medications: HOME MEDICATIONS Aspirin [Aspirin EC] 81 mg PO DAILY 05/31/16 [Last Taken 03/25/18 08:00] Docusate Sodium [Colace] 100 mg PO DAILY 05/31/16 [Last Taken Unknown] Polyethylene Glycol 3350 [Miralax] 17 gm PO DAILY 05/31/16 [Last Taken 03/25/18 08:00] Calcium Carbonate [Calcium] 500 mg PO BID 02/09/17 [Last Taken 03/25/18 08:00] albuterol sulfate 90 mcg/actuation aerosol inhaler 2 inh IH QID PRN #18 g 07/05/18 [Last Taken Unknown] lisinopril 40 mg tablet See Rx Instructions .ROUTE .COMPLEX #180 unspecified 01/09/20 [Last Taken Unknown] bupropion HCl 150 mg 24 hr tablet, extended release See Rx Instructions .ROUTE .COMPLEX #60 tab 01/13/20 [Last Taken Unknown] fluticasone propionate 50 mcg/actuation nasal spray,suspension 1 spray LISBETH DAILY PRN #47.4 g 03/02/20 [Last Taken Unknown] metformin 500 mg tablet See Rx Instructions .ROUTE .COMPLEX #180 unspecified 03/29/20 [Last Taken Unknown] metoprolol tartrate 25 mg tablet See Rx Instructions .ROUTE .COMPLEX #180 unknown measurement unit code: not specified 03/29/20 [Last Taken Unknown] pantoprazole 40 mg tablet,delayed release See Rx Instructions .ROUTE .COMPLEX #90 unknown measurement unit code: not specified 05/08/20 [Last Taken Unknown] atorvastatin 40 mg tablet 40 mg PO DAILY #90 tab 06/07/20 [Last Taken Unknown] - History of Present Illness Date (Duration): 06/21/20 Time (Timing): 21:31 Narrative: 64-year-old male seen in the emergency room yesterday for a fall pain to the head was brought back tonight by EMS states he was sitting on the edge of his bed and he slid off and hit his left side on a dresser patient is awake and alert not complaining of any other injuries right patient lives at home alone seems to be a little on the slow side Patient has a history of frequently falling which he states is because he gets dizzy or vertigo from time to time otherwise the patient is a very poor historian Patient's CAT scan last night was essentially negative for any injury or bleed Patient has a history of TIA for confusion MRI should show some mild micro- atrophy carotids were negative echo was negative Location Occurred: Reports: home Pain Location: Reports: chest, other - Ribs Method of Injury: Reports: fall Severity: moderate Modifying Factors - (Improves): Reports: rest Modifying Factors - (Worsens): Reports: movement Loss of Consciousness: Reports: no loss of consciousness Associated Symptoms - Trauma: Reports: other - Left rib pain Review of Systems - Review of Systems Constitutional: Present: no symptoms reported EYE: Present: no symptoms reported ENT: Present: no symptoms reported Respiratory: Present: no symptoms reported Cardiology: Present: no symptoms reported Gastrointestinal/Abdominal: Present: no symptoms reported Genitourinary: Present: no symptoms reported Musculoskeletal: Present: no symptoms reported Skin: Present: no symptoms reported, rash, other - Both feet significant dry rash or skin rash Neurological: Present: weakness, pre-existing deficit Endocrine: Present: no symptoms reported Hematologic/Lymphatic: Present: no symptoms reported Psych: Present: emotional problems All Other Systems: All systems neg except as marked Medical History (Last Reviewed 06/21/20 @ 21:39 by Aamir Ni MD) Epistaxis not due to trauma (Acute) Otitis externa (Acute) Obesity (Chronic) Onset Date: ~2015 HTN (hypertension) (Chronic) Onset Date: Unknown HLD (hyperlipidemia) (Chronic) Onset Date: Unknown GERD (gastroesophageal reflux disease) (Chronic) Onset Date: Unknown Diabetes mellitus type 2 in obese (Chronic) Onset Date: Unknown Asthma (Chronic) Onset Date: Unknown Depression (Chronic) Onset Date: ~08/02/17 Anxiety (Chronic) Onset Date: ~08/02/17 Allergic rhinitis (Chronic) Onset Date: Unknown Cervical paraspinal muscle spasm (Acute) Cervical strain, acute (Acute) Chest pain (Acute) Viral syndrome (Acute) Chills (without fever) (Acute) UTI (urinary tract infection) (Acute) Hyperglycemia (Acute) GIB (gastrointestinal bleeding) (Acute) Diarrhea (Acute) Hypotension (Resolved) SOLO (acute kidney injury) (Acute) Hypertension (Chronic) T2DM (type 2 diabetes mellitus) (Chronic) TIA (transient ischemic attack) Onset Date: ~03/2016 confusion; MRI chronic ischemic micro vascular disease, US carotids not significant; echo normal[RC] Wears dentures Wears eyeglasses Anemia Onset Date: Unknown Surgical History: Surgical History (Last Reviewed 06/21/20 @ 21:39 by Aamir Ni MD) H/O esophagogastroduodenoscopy Onset Date: ~03/05/09 Tinguely- reflux esophagitis, gastric polyp, hiatal hernia. History of arthroscopic surgery of shoulder Onset Date: ~2004 LEFT-Rashad History of cataract surgery Onset Date: Unknown History of colonoscopy Onset Date: 03/05/09 Tinguely-hyperplastic polyp. Diverticulosis, internal and external hemorrhoids. History of nasal surgery Onset Date: Unknown Elli Family History: Family History (Last Reviewed 06/21/20 @ 21:27 by Luana East RN) Father , age 58-DE Heart disease Mother , age 88-old age Cancer unknown type Grandfather , Paternal-D.M Diabetes Brother Alive and well Social History: (Last Reviewed 06/21/20 @ 21:27 by Luana East RN) Social History: long-term: No Marital status: Single lives independently: Yes household members: none number of children: 0 current occupational status: retired Service: No Tobacco: Smoking Status: Former smoker Alcohol: alcohol intake: current Alcohol type: beer alcohol intake frequency: holiday/special occasion Substance Use: substance use type: does not use Dietary Habits: caffeine: Yes Type: carbonated beverages Personal Safety: victim of physical abuse: No victim of emotional abuse: No Physical Exam - Physical Exam General Appearance: Present: wd/wn, alert, mild distress, obese, sleeping/easy to arouse Head Exam: Present: contusions, ecchymosis Eye Exam: Normal inspection: bilateral, PERRL: bilateral, EOMI: bilateral Ears, Nose, Throat: Present: normal ENT inspection Neck: Present: normal inspection Respiratory: Present: no respiratory distress, normal breath sounds, other - Tender left axillary rib region. Absent: chest nontender Cardiovascular/Chest: Present: regular rate, rhythm Gastrointestinal/Abdominal: Present: normal bowel sounds, nontender, nondistended, soft Back Exam: Present: normal inspection, normal range of motion, no CVA tenderness, no vertebral tenderness Extremity Exam: Present: normal inspection, other - Poor foot hygiene Neurological Exam: Present: alert, no motor/sensory deficits, continuous drier helper II-XII nml as tested Skin Exam: Present: normal color, warm/dry Lymphatic Exam: Present: no adenopathy Detailed Trauma Exam Best Eye Response (Radha): (4) open spontaneously Best Verbal Response (Radha): (5) oriented Best Motor Response ([place]): (6) obeys commands Radha Total: 15 General Appearance: Present: alert Head Injury: Present: abrasion, ecchymosis, swelling Neurological Exam: Present: alert, oriented x 4, no motor/sensory deficit, motor weakness, depressed affect Neck Exam: Present: non-tender Eye Exam: Normal inspection: bilateral, PERRL: bilateral, EOMI: bilateral ENT Exam: Present: nml ext. inspection Chest/Respiratory Exam: Present: nml inspection, other - Pain left lower ribs on the anterior axillary line. Absent: chest non-tender Cardiovascular Exam: Present: regular rate, rhythm Back Exam: Present: normal inspection, no CVA tenderness, no vertebral tenderness Abdominal Exam: Present: soft, non-tender, no distention, normal bowel sounds, no organomegaly Skin Exam: Present: normal color RU Extremity: Present: normal inspection ELADIA Extremity: Present: normal inspection RL Extremity: Present: normal inspection LL Extremity: Present: normal inspection - C-Spine cleared by: Neg history & exam Progress - Results and Orders Results and Orders: Accu-Chek 151 Laboratory Tests 06/21/20 06/21/20 21:42 21:42 WBC 7.5 RBC 5.49 Hgb 12.5 L Hct 40.5 L MCV 73.8 L MCH 22.8 L MCHC 30.9 L RDW 14.6 H Plt Count 205 Neutrophils % 76.9 H Lymphocytes % 15.9 L Sodium 135 Plasma Sodium 136 Potassium 3.5 Chloride 100 Carbon Dioxide 23.4 L Anion Gap 15.1 H BUN 13 Creatinine 1.11 Est GFR (Non-Af Amer) 70 BUN/Creatinine Ratio 11.7 Random Glucose 177 H Calcium 9.5 Calcium Adj for Albumin 9.7 Total Bilirubin 0.8 AST 24 ALT 16 L Alkaline Phosphatase 72 Troponin I 0.022 B-Natriuretic Peptide 474 H Total Protein 7.6 Albumin 3.3 L ph 7.457 Laboratory Tests 06/21/20 22:29 pCO2 31.5 L pO2 69.4 L HCO3 21.7 Total CO2 22.7 Base Excess -1.3 ABG pH 7.46 H ABG O2 Sat (Measured) 94.9 Laboratory Tests 06/21/20 22:40 Urine Color Dark yellow Urine Appearance Clear Urine pH 6.0 Ur Specific [place] >=1.030 Urine Protein 100 H Urine Glucose (UA) Negative Urine Ketones 15 Urine Blood 25 H Urine Nitrate Negative Urine Bilirubin 1 H Urine Ictotest Negative Prot Sulfosalicylic Acd 4+ H Urine Urobilinogen Normal Ur Leukocyte Esterase Negative Urine RBC 0-5 Urine WBC None seen Ur Epithelial Cells 0-5 Urine Bacteria None seen Urine Culture Comments No culture indicated Laboratory Tests 06/21/20 22:40 Urine Opiates Screen Negative Barbiturate Screen Negative Ur Phencyclidine Scrn Negative Urine Amphetamine Negative U Benzodiazepines Scrn Negative Urine Cocaine Screen Negative Urine Marijuana (THC) Negative - Vital Signs Patient's Vital Signs:: I have reviewed the patient's vital signs. Vital Signs: Vital Signs 06/21/20 21:21 06/21/20 21:28 Temperature 37.2 C Pulse Rate 101 H 95 Respiratory Rate 20 Blood Pressure 181/98 H O2 Sat by Pulse Oximetry 92 L Blood pressure is elevated heart rate elevated O2 sat 92 on room - EKG EKG #1 EKG: NSR EKG read: Interp. by me EKG Comments: EKG shows a sinus rhythm with a heart rate in the no acute changes from 9 - X-Ray X-Ray #1 X-Ray: chest Interpretation: Interp. by me X-ray Comments: Chest x-ray no acute disease X-Ray #2 X-Ray: ribs Interpretation: Interp. by me X-ray Comments: Left ribs no acute fracture seen - CT/Ultrasound CT/Ultrasound Narrative: CT the head no acute intracranial findings - Progress/Reassessment Chief Complaint: Fall Progress Note-Subjective: 06/21/20 23:18 Blood work x-rays CAT scans all unremarkable at this stage patient still remains somewhat lethargic but arousable he just says he is sleepy wants to sleep we will try to get him up unable to get him to stand off the stretcher so we did do it last night said he took some kind of pain medication but when asked what was a narcotic he said no something that was in his refrigerator but we have no accounting for any kind of pain medication on his intake forms Plan - Plan Plan: Patient remains somewhat lethargic cooperative awake when aroused but mostly just sleepy do not feel comfortable with sending this patient home will seek admission for further work-up Patient will be admitted by Dr. Gonzalez to telemetry and MRI will be done first thing in the morning Departure Clinical Impression: Traumatic injury of head with altered mental status, Injury of face and neck - Departure Disposition: Short Term Hospital Inpatient Condition: Stable Additional Instructions: Admit to observation Dr. Gonzalez Referrals: Farzana Ceuva MD [Primary Care Provider] - Critical Care Time - Critical Care Critical Time Spent:: No
[2020-06-21 21:49] LABS: Hematocrit 40.5 % (42.0-52.0); Hemoglobin 12.5 gm/dL (13.5-18.0); Mean Cell Volume 73.8 fl (78-100); Mean Corpuscular Hemoglobin 22.8 pg (27-31); Mean Corpuscular Hgb Conc 30.9 g/dl (32-36); Mean Platelet Volume 9.3 fl (8-11.3); Neutrophil # 5.8 K/mm3 (1.3-6.0); Neutrophil % 76.9 % (42-75.0); Platelet Count 205 K/mm3 (150-450); Red Blood Count 5.49 M/mm3 (4.7-6.0); Red Cell Distribution Width 14.6 % (11.5-14.0); White Blood Count 7.5 K/mm3 (4.0-10.5)
[2020-06-21 22:06] LABS: Troponin I 0.022 ng/mL (0.00-0.10)
[2020-06-21 22:08] LABS: Albumin * 3.3 gm/dl (3.4-5.0); Anion Gap 15.1 mmol/L (6.8-13.8); BUN/Creatinine Ratio 11.7 (9.0-21.6); Bilirubin, Total 0.8 mg/dL (0.0-1.1); Ca. Corrected For Albumin 9.7 mg/dL (8.4-10.2); Calcium * 9.5 mg/dL (7.9-10.9); Carbon Dioxide 23.4 mmol/L (24-32.6); Potassium 3.5 mmol/L (3.4-4.6); Total Protein 7.6 gm/dL (6.2-8.2)
[2020-06-21 22:48] LABS: Urine Bilirubin 1 mg/dl (NEGATIVE); Urine Blood 25 /ul (NEGATIVE); Urine Ketone 15 mg/dL (NEGATIVE); Urine Nitrite Negative (NEGATIVE); Urine Protein 100 mg/dL (NEGATIVE); Urine Specific Gravity >=1.030 SP.GR. (1.005-1.030); Urine Urobilinogen Normal (NORMAL)
[2020-06-21 22:50] LABS: Urine Appearance Clear (CLEAR); Urine Bacteria None Seen; Urine Color Dark Yellow; Urine RBC 0-5 /hpf (0-5); Urine WBC None Seen /hpf (0-5)
[2020-06-21 23:24] LABS: Cocaine Ur Negative (NEGATIVE); Urine Barbiturate Negative (NEGATIVE); Urine Benzodiazepines Negative (NEGATIVE); Urine Opiates Negative (NEGATIVE); Urine PCP Negative (NEGATIVE); Urine THC Negative (NEGATIVE)
[2020-06-21] MEDS ORDERED: ASPIRIN 81 MG TAB.CHEW PO ONE (23:48)
[2020-06-21] MEDS ORDERED: ALBUTEROL SULFATE 60 PUFF INHALER IH ONE (23:48)
[2020-06-21] MEDS ORDERED: LISINOPRIL 10 MG TABLET PO ONE (23:50)
[2020-06-21] MEDS ORDERED: PANTOPRAZOLE SODIUM 40 MG TABLET.EC PO ONE (23:51)
[2020-06-22] MEDS ORDERED: ACETAMINOPHEN 500 MG TABLET PO PRN (01:59)
[2020-06-22] MEDS ORDERED: ASPIRIN 81 MG TAB.CHEW ONE (02:39)
[2020-06-22] MEDS ORDERED: LISINOPRIL 40 MG TABLET ONE (02:43)
[2020-06-22] MEDS ORDERED: PANTOPRAZOLE SODIUM 40 MG TABLET.EC ONE (02:44)
[2020-06-22] MEDS ORDERED: LISINOPRIL 10 MG TABLET ONE (02:47)
[2020-06-22] MEDS ORDERED: METOPROLOL TARTRATE 1 MG/ML AMPUL IV ONE (04:55)
[2020-06-22] MEDS ORDERED: ALBUTEROL SULFATE 2.5 MG/0.5 ML VIAL.NEB IH PRN (05:15)
[2020-06-22] MEDS: INSULIN LISPRO 100 UNITS/ML VIAL SC SCH ×4 (06:41→20:29)
[2020-06-22] MEDS: CALCIUM CARBONATE 500 MG TAB.CHEW PO SCH (08:01)
[2020-06-22] MEDS: POLYETHYLENE GLYCOL 3350 17 GM PACKET PO SCH (08:03)
[2020-06-22] MEDS ORDERED: ALBUTEROL SULFATE 200 PUFF INHALER IH PRN (08:53)
[2020-06-22] MEDS ORDERED: FLUTICASONE PROPIONATE 120 SPRAY INHALER NS PRN (08:53)
[2020-06-22] MEDS ORDERED: NON-FORMULARY 1 DOSE DOSE (Calcium Carbonate [Calcium] 500 MG) PO SCH (09:00)
[2020-06-22] MEDS ORDERED: PANTOPRAZOLE SODIUM 40 MG TABLET.EC PO SCH (09:00)
[2020-06-22] MEDS ORDERED: LISINOPRIL 40 MG TABLET PO SCH ×2 (09:00)
[2020-06-22] MEDS ORDERED: ATORVASTATIN CALCIUM 40 MG PO SCH (09:00)
[2020-06-22] MEDS ORDERED: POLYETHYLENE GLYCOL 3350 17 GM PACKET PO SCH (09:00)
[2020-06-22] MEDS ORDERED: ASPIRIN 81 MG TABLET.DR PO SCH (09:00)
[2020-06-22] MEDS ORDERED: DOCUSATE SODIUM 100 MG CAPSULE PO ONE (09:00)
[2020-06-22] MEDS ORDERED: buPROPion HCL 150 MG TAB.SR.24H PO SCH ×2 (09:00)
[2020-06-22] MEDS ORDERED: POLYETHYLENE GLYCOL 3350 119 GM BTL PO SCH (09:00)
[2020-06-22] MEDS ORDERED: DOCUSATE SODIUM 100 MG CAPSULE PO SCH (09:00)
[2020-06-22] MEDS ORDERED: METOPROLOL TARTRATE 25 MG TABLET PO SCH ×2 (09:00)
[2020-06-22] MEDS: METOPROLOL TARTRATE 25 MG TABLET PO SCH ×2 (09:08→20:33)
[2020-06-22] MEDS ORDERED: MIDAZOLAM HCL/PF 5 MG/ML VIAL ONE (09:25)
[2020-06-22] MEDS ORDERED: fentaNYL CITRATE/PF 50 MCG/ML AMPUL ONE (09:25)
--- NOTE | 2020-06-22 09:25 | HP ---
Chief Complaint - Chief Complaint Date of Service: 06/22/20 Time of Service: 09:07 Chief Complaint: I feel sleepy and weak History of Present Illness: 64-year-old male with past medical history of hypertension, morbid obesity, type 2 diabetes, hyperlipidemia, TIA, bronchial asthma, was evaluated in the ER for increasing altered mental status and lethargy that started after the patient fell in his home. Patient was seen the day before the admission for a fall that occurred while he attempted to get out of bed, he reports falling onto his left flank. He was evaluated in the ER and underwent imaging which were unremarkable for fractures or acute findings. The following day the patient was brought back to the ER by EMS when he was discovered to have fallen again when he slipped out of bed. The patient reports hitting his head but he cannot be determined if that occurred during the first or second fall. Patient has a history of recurrent falls most likely secondary to his issues with balance, in fact he uses a walker for ambulation. However upon questioning the patient admits to not using the walker as he should which might of contributed to him falling. The patient was evaluated at bedside this morning he was found to have left-sided weakness in upper and lower extremities but his sensation and reflexes are intact. The patient was cooperative but slow to follow commands, they had to be repeated multiple times in order for him to carry them out. However he was oriented in person time and place but appeared lethargic and reported feeling sleepy. Head CT done in the ER was negative for any acute findings but given his presentation decision to order a brain MRI was made. He has undergone a COVID-19 testing to prepare for presedation by anesthesia in order to conduct imaging. We will wait for the results and treat the patient accordingly, in the meantime PT, OT, and speech eval have been ordered to evaluate his deficits further. Patient's blood pressure is also elevated this morning but he takes multiple medications in the morning, will administer antihypertensive to control blood pressure. Medical History (Last Reviewed 06/21/20 @ 21:39 by Aamir Ni MD) Epistaxis not due to trauma (Acute) Otitis externa (Acute) Obesity (Chronic) Onset Date: ~2015 HTN (hypertension) (Chronic) Onset Date: Unknown HLD (hyperlipidemia) (Chronic) Onset Date: Unknown GERD (gastroesophageal reflux disease) (Chronic) Onset Date: Unknown Diabetes mellitus type 2 in obese (Chronic) Onset Date: Unknown Asthma (Chronic) Onset Date: Unknown Depression (Chronic) Onset Date: ~08/02/17 Anxiety (Chronic) Onset Date: ~08/02/17 Allergic rhinitis (Chronic) Onset Date: Unknown Cervical paraspinal muscle spasm (Acute) Cervical strain, acute (Acute) Chest pain (Acute) Viral syndrome (Acute) Chills (without fever) (Acute) UTI (urinary tract infection) (Acute) Hyperglycemia (Acute) GIB (gastrointestinal bleeding) (Acute) Diarrhea (Acute) Hypotension (Resolved) SOLO (acute kidney injury) (Acute) Hypertension (Chronic) T2DM (type 2 diabetes mellitus) (Chronic) TIA (transient ischemic attack) Onset Date: ~03/2016 confusion; MRI chronic ischemic micro vascular disease, US carotids not significant; echo normal[[facility]] Wears dentures Wears eyeglasses Anemia Onset Date: Unknown Surgical History: Surgical History (Last Reviewed 06/21/20 @ 21:39 by Aamir Ni MD) H/O esophagogastroduodenoscopy Onset Date: ~03/05/09 Tinguely- reflux esophagitis, gastric polyp, hiatal hernia. History of arthroscopic surgery of shoulder Onset Date: ~2004 LEFT-Rashad History of cataract surgery Onset Date: Unknown History of colonoscopy Onset Date: 03/05/09 Tinguely-hyperplastic polyp. Diverticulosis, internal and external hemorrhoids. History of nasal surgery Onset Date: Unknown Elli Family History: Family History (Last Reviewed 06/21/20 @ 21:27 by Luana East RN) Father , age 58-[place] Heart disease Mother , age 88-old age Cancer unknown type Grandfather , Paternal-D.M Diabetes Brother Alive and well Social History: (Last Reviewed 06/21/20 @ 21:27 by Luana East RN) Social History: chcf: No Marital status: Single lives independently: Yes household members: none number of children: 0 current occupational status: retired Service: No Tobacco: Smoking Status: Former smoker Alcohol: alcohol intake: current Alcohol type: beer alcohol intake frequency: holiday/special occasion Substance Use: substance use type: does not use Dietary Habits: caffeine: Yes Type: carbonated beverages Personal Safety: victim of physical abuse: No victim of emotional abuse: No Peds Patient Hx - Developmental: No Pertinent Hx Peds Patient Hx - Medical: No Pertinent Hx Peds Patient Hx - Cardiac/Respiratory: No Pertinent Hx Peds Patient Hx - Surgical: No Surgical History Patient History - Cancer: No Hx of Cancer Review Of Systems (GEN) - Review of Systems Generalized/Overall Review: Present: Weakness EENTM: Present: No Symptoms Reported Respiratory: Present: No Symptoms Reported Cardiac: Present: No Symptoms Reported Abdominal: Present: No Symptoms Reported Genitourinary: Present: No Symptoms Reported Musculoskeletal: Present: Other - Left flank and lower back pain Neurological: Present: Weakness, Other - Left-sided weakness and lethargy Skin: Present: No Symptoms Reported Endocrine: Present: No Symptoms Reported Immunizations: IMMUNIZATION HX Immunizations Up to Date Yes History of Influenza Vaccine Yes Hx Pneumococcal Vaccination No Allergies/Adverse Reactions: Allergies Allergy/AdvReac Type Severity Reaction Status Date / Time latex Allergy Unknown Hives Verified 06/22/20 01:01 Penicillins Allergy Unknown Hives Verified 06/22/20 01:01 cephalexin AdvReac Intermediate diarrhea Verified 06/22/20 01:01 erythromycin base AdvReac Intermediate diarrhea Verified 06/22/20 01:01 Home Medications: HOME MEDICATIONS Aspirin [Aspirin EC] 81 mg PO DAILY 05/31/16 [Last Taken 06/20/20] Docusate Sodium [Colace] 100 mg PO DAILY 05/31/16 [Last Taken 06/21/20] Polyethylene Glycol 3350 [Miralax] 17 gm PO DAILY 05/31/16 [Last Taken 06/19/20] Calcium Carbonate [Calcium] 500 mg PO BID 02/09/17 [Last Taken 03/25/18 08:00] albuterol sulfate 90 mcg/actuation aerosol inhaler 2 inh IH QID PRN #18 g 07/05/18 [Last Taken 06/15/20] fluticasone propionate 50 mcg/actuation nasal spray,suspension 1 spray LISBETH DAILY PRN #47.4 g 03/02/20 [Last Taken 06/15/20] atorvastatin 40 mg tablet 40 mg PO DAILY #90 tab 06/07/20 [Last Taken 06/15/20] Lisinopril [Zestril] 40 mg PO BID 06/22/20 [Last Taken 06/15/20] Metoprolol Tartrate [Lopressor] 25 mg PO BID 06/22/20 [Last Taken 06/15/20] Pantoprazole Sodium 40 mg PO DAILY 06/22/20 [Last Taken 06/15/20] buPROPion HCL [Wellbutrin Xl] 300 mg PO DAILY 06/22/20 [Last Taken 06/15/20] metFORMIN HCL [Metformin HCl] 500 mg PO BID 06/22/20 [Last Taken 06/15/20] Exam - Exam Vital Signs: Vital Signs - Last Taken Temp 36.9 C 06/22/20 07:49 Pulse 83 06/22/20 07:49 Resp 16 06/22/20 07:49 BP 161/93 H 06/22/20 07:49 Pulse Ox 93 06/22/20 07:49 Constitutional: Present: Alert, Oriented x3, Cooperative, Well developed, No distress, Lethargic, Somnolent, Elderly, Morbidly obese ENT Exam: Present: normal ENT inspection, hearing grossly normal, pharynx normal, TMs normal Eye Exam: bilateral eye: normal inspection, PERRL, EOMI Neck: Present: non-tender, full range of motion, supple, normal inspection, trachea midline Back Exam: Present: normal inspection, no CVA tenderness, no vertebral tender ness, other - Mild left flank and left hip tenderness Breasts: Present: Exam deferred Respiratory: Present: chest non-tender, no respiratory distress, no accessory muscle use, wheezing Cardiovascular/Chest: Present: normal peripheral pulses, regular rate, rhythm, no chest tenderness, no edema, no gallop, no JVD, no murmur, no rub Peripheral Pulses: dorsalis-pedis (R): 2+, dorsalis-pedis (L): 2+ Abdomen: Present: Normal bowel sounds, soft, nontender, nondistended, no rebound tenderness, no hepatospenomegaly, obese /Rectal: Present: Exam deferred Extremity: Present: normal range of motion, non-tender, normal inspection, no pedal edema, no calf tenderness, normal capillary refill, pelvis stable, other - GERD and debris and interdigitary spaces bilaterally. Skin Exam: Present: normal color, warm/dry, no cyanosis Lymphatic: Present: no adenopathy Neurologic: Present: alert, normal mood/affect, oriented x 3, abnormal television cameraman II- XII - Left-sided hemiparesis, weakness and left upper and lower extremity. Sensation intact., motor weakness Appearance: Present: appropriate insight, disheveled Thoughts: Present: normal thought pattern, no apparent hallucination Diagnostic Studies: Abnormal Lab Results 06/21/20 06/21/20 06/21/20 Range/Units 21:42 21:42 22:29 Hgb 12.5 L (13.5-18.0) gm/dL Hct 40.5 L (42.0-52.0) % MCV 73.8 L (78-100) fl MCH 22.8 L (27-31) pg MCHC 30.9 L (32-36) g/dl RDW 14.6 H (11.5-14.0) % Neutrophils % 76.9 H (42-75.0) % Lymphocytes % 15.9 L (20-51) % Lymphocytes # 1.19 L (1.5-3.5) k/mm3 pCO2 31.5 L (35.0-48.0) mmHg pO2 69.4 L (83.0-108.0) mmHg ABG pH 7.46 H (7.35-7.45) Carbon Dioxide 23.4 L (24-32.6) mmol/L Anion Gap 15.1 H (6.8-13.8) mmol/L Random Glucose 177 H (70-110) mg/dL ALT 16 L (19-67) U/L B-Natriuretic Peptide 474 H (5-350) pg/mL Albumin 3.3 L (3.4-5.0) gm/dl Urine Protein (NEGATIVE) mg/dL Urine Blood (NEGATIVE) /ul Urine Bilirubin (NEGATIVE) mg/dl Prot Sulfosalicylic Acd (0) mg/dL 06/21/20 Range/Units 22:40 Hgb (13.5-18.0) gm/dL Hct (42.0-52.0) % MCV (78-100) fl MCH (27-31) pg MCHC (32-36) g/dl RDW (11.5-14.0) % Neutrophils % (42-75.0) % Lymphocytes % (20-51) % Lymphocytes # (1.5-3.5) k/mm3 pCO2 (35.0-48.0) mmHg pO2 (83.0-108.0) mmHg ABG pH (7.35-7.45) Carbon Dioxide (24-32.6) mmol/L Anion Gap (6.8-13.8) mmol/L Random Glucose (70-110) mg/dL ALT (19-67) U/L B-Natriuretic Peptide (5-350) pg/mL Albumin (3.4-5.0) gm/dl Urine Protein 100 H (NEGATIVE) mg/dL Urine Blood 25 H (NEGATIVE) /ul Urine Bilirubin 1 H (NEGATIVE) mg/dl Prot Sulfosalicylic Acd 4+ H (0) mg/dL Laboratory Results WBC 7.5 K/mm3 (4.0-10.5) 06/21/20 21:42 RBC 5.49 M/mm3 (4.7-6.0) 06/21/20 21:42 Hgb 12.5 gm/dL (13.5-18.0) L 06/21/20 21:42 Hct 40.5 % (42.0-52.0) L 06/21/20 21:42 MCV 73.8 fl (78-100) L 06/21/20 21:42 MCH 22.8 pg (27-31) L 06/21/20 21:42 MCHC 30.9 g/dl (32-36) L 06/21/20 21:42 RDW 14.6 % (11.5-14.0) H 06/21/20 21:42 Plt Count 205 K/mm3 (150-450) 06/21/20 21:42 MPV 9.3 fl (8-11.3) 06/21/20 21:42 Immature Gran % (Auto) 0.10 % (0.001-0.429) 06/21/20 21:42 Immature Gran # (Auto) 0.01 K/mm3 (0.000-0.0310) 06/21/20 21:42 Neutrophils % 76.9 % (42-75.0) H 06/21/20 21:42 Lymphocytes % 15.9 % (20-51) L 06/21/20 21:42 Monocytes % 6.8 % (0.0-9) 06/21/20 21:42 Eosinophils % 0.0 % (0.0-3.0) 06/21/20 21:42 Basophils % 0.3 % (0.0-1.0) 06/21/20 21:42 Nucleated RBC % 0.0 k/mm3 (0-1) 06/21/20 21:42 Neutrophils # 5.8 K/mm3 (1.3-6.0) 06/21/20 21:42 Lymphocytes # 1.19 k/mm3 (1.5-3.5) L 06/21/20 21:42 Monocytes # 0.5 k/mm3 (0.0-1.0) 06/21/20 21:42 Eosinophils # 0.0 k/mm3 (0.0-0.7) 06/21/20 21:42 Absolute Basophils 0.0 k/mm3 (0.0-0.1) 06/21/20 21:42 pCO2 31.5 mmHg (35.0-48.0) L 06/21/20 22:29 pO2 69.4 mmHg (83.0-108.0) L 06/21/20 22:29 HCO3 21.7 mmol/L (21.0-28.0) 06/21/20 22:29 Total CO2 22.7 mmol/L (19.0-24.0) 06/21/20 22:29 Base Excess -1.3 mmol/L (-2.0-3.0) 06/21/20 22:29 ABG pH 7.46 (7.35-7.45) H 06/21/20 22:29 ABG O2 Sat (Measured) 94.9 % (94.0-98.0) 06/21/20 22:29 Sodium 135 mmol/L (132-142) 06/21/20 21:42 Plasma Sodium 136 mmol/L (130-142) 06/21/20 21:42 Potassium 3.5 mmol/L (3.4-4.6) 06/21/20 21:42 Chloride 100 mmol/L (97-106) 06/21/20 21:42 Carbon Dioxide 23.4 mmol/L (24-32.6) L 06/21/20 21:42 Anion Gap 15.1 mmol/L (6.8-13.8) H 06/21/20 21:42 BUN 13 mg/dL (6-23) 06/21/20 21:42 Creatinine 1.11 mg/dL (0.4-1.4) 06/21/20 21:42 Est GFR (Non-Af Amer) 70 mL/min (60-130) 06/21/20 21:42 BUN/Creatinine Ratio 11.7 (9.0-21.6) 06/21/20 21:42 Random Glucose 177 mg/dL (70-110) H 06/21/20 21:42 Calcium 9.5 mg/dL (7.9-10.9) 06/21/20 21:42 Calcium Adj for Albumin 9.7 mg/dL (8.4-10.2) 06/21/20 21:42 Total Bilirubin 0.8 mg/dL (0.0-1.1) 06/21/20 21:42 AST 24 U/L (0-48) 06/21/20 21:42 ALT 16 U/L (19-67) L 06/21/20 21:42 Alkaline Phosphatase 72 U/L (50-170) 06/21/20 21:42 Troponin I 0.022 ng/mL (0.00-0.10) 06/21/20 21:42 B-Natriuretic Peptide 474 pg/mL (5-350) H 06/21/20 21:42 Total Protein 7.6 gm/dL (6.2-8.2) 06/21/20 21:42 Albumin 3.3 gm/dl (3.4-5.0) L 06/21/20 21:42 Urine Color Dark yellow 06/21/20 22:40 Urine Appearance Clear (CLEAR) 06/21/20 22:40 Urine pH 6.0 pH (5.0-7.0) 06/21/20 22:40 Ur Specific [place]on >=1.030 SP.GR. (1.005-1.030) 06/21/20 22:40 Urine Protein 100 mg/dL (NEGATIVE) H 06/21/20 22:40 Urine Glucose (UA) Negative mg/dL (NEGATIVE) 06/21/20 22:40 Urine Ketones 15 mg/dL (NEGATIVE) 06/21/20 22:40 Urine Blood 25 /ul (NEGATIVE) H 06/21/20 22:40 Urine Nitrate Negative (NEGATIVE) 06/21/20 22:40 Urine Bilirubin 1 mg/dl (NEGATIVE) H 06/21/20 22:40 Urine Ictotest Negative (NEGATIVE) 06/21/20 22:40 Prot Sulfosalicylic Acd 4+ mg/dL (0) H 06/21/20 22:40 Urine Urobilinogen Normal EU/dl (NORMAL) 06/21/20 22:40 Ur Leukocyte Esterase Negative /ul (NEGATIVE) 06/21/20 22:40 Urine RBC 0-5 /hpf (0-5) 06/21/20 22:40 Urine WBC None seen /hpf (0-5) 06/21/20 22:40 Ur Epithelial Cells 0-5 /hpf (0-5) 06/21/20 22:40 Urine Bacteria None seen (NONE) 06/21/20 22:40 Urine Culture Comments No culture indicated 06/21/20 22:40 Urine Opiates Screen Negative (NEGATIVE) 06/21/20 22:40 Barbiturate Screen Negative (NEGATIVE) 06/21/20 22:40 Ur Phencyclidine Scrn Negative (NEGATIVE) 06/21/20 22:40 Urine Amphetamine Negative (NEGATIVE) 06/21/20 22:40 U Benzodiazepines Scrn Negative (NEGATIVE) 06/21/20 22:40 Urine Cocaine Screen Negative (NEGATIVE) 06/21/20 22:40 Urine Marijuana (THC) Negative (NEGATIVE) 06/21/20 22:40 Assessment/Plan - Narrative Narrative: Patient was evaluated and medical chart was reviewed and decision to admit to [facility] for evaluation and treatment of altered mental status and head injury was made. Head CT has been reviewed and no acute findings were noted however given the patient's ongoing and new onset motor deficits and lethargy, we will get a brain MRI for further evaluation. In the meantime we will follow- up with recommendation from PT OT and speech therapist in order to evaluate his deficits in greater detail and to determine the degree of rehab needed. Patient was also found to have an elevated BNP on labs however he denies any shortness of breath outside of his occasional asthma symptoms and his lungs were clear. - Assessment/Plan (1) Injury of face and neck Problem: Acute (2) Traumatic injury of head with altered mental status Problem: Acute (3) Obesity Problem: Chronic (4) HTN (hypertension) Problem: Chronic (5) Diabetes mellitus type 2 in obese Problem: Chronic (6) Asthma Problem: Chronic (7) Falls Problem: Acute (8) Impairment of balance Problem: Acute (9) Left hemiparesis Problem: Acute (10) Altered mental status Problem: Acute
--- NOTE | 2020-06-22 09:34 | ANES ---
Anesthesia Pre Procedure Eval Vitals/Labs: Last Vital Signs Temp 36.9 C 06/22/20 07:49 Pulse 83 06/22/20 09:08 Resp 16 06/22/20 07:49 BP 161/93 H 06/22/20 09:08 Pulse Ox 93 06/22/20 07:49 HOME MEDICATIONS Aspirin [Aspirin EC] 81 mg PO DAILY 05/31/16 [Last Taken 06/20/20] Docusate Sodium [Colace] 100 mg PO DAILY 05/31/16 [Last Taken 06/21/20] Polyethylene Glycol 3350 [Miralax] 17 gm PO DAILY 05/31/16 [Last Taken 06/19/20] Calcium Carbonate [Calcium] 500 mg PO BID 02/09/17 [Last Taken 03/25/18 08:00] albuterol sulfate 90 mcg/actuation aerosol inhaler 2 inh IH QID PRN #18 g 07/05/18 [Last Taken 06/15/20] fluticasone propionate 50 mcg/actuation nasal spray,suspension 1 spray LISBETH DAILY PRN #47.4 g 03/02/20 [Last Taken 06/15/20] atorvastatin 40 mg tablet 40 mg PO DAILY #90 tab 06/07/20 [Last Taken 06/15/20] Lisinopril [Zestril] 40 mg PO BID 06/22/20 [Last Taken 06/15/20] Metoprolol Tartrate [Lopressor] 25 mg PO BID 06/22/20 [Last Taken 06/15/20] Pantoprazole Sodium 40 mg PO DAILY 06/22/20 [Last Taken 06/15/20] buPROPion HCL [Wellbutrin Xl] 300 mg PO DAILY 06/22/20 [Last Taken 06/15/20] metFORMIN HCL [Metformin HCl] 500 mg PO BID 06/22/20 [Last Taken 06/15/20] Allergies/Adverse Reactions: Allergies Allergy/AdvReac Type Severity Reaction Status Date / Time latex Allergy Unknown Hives Verified 06/22/20 01:01 Penicillins Allergy Unknown Hives Verified 06/22/20 01:01 cephalexin AdvReac Intermediate diarrhea Verified 06/22/20 01:01 erythromycin base AdvReac Intermediate diarrhea Verified 06/22/20 01:01 - Planned Procedure Planned Procedure: AMS after head injury Medication List Reviewed:: Yes Allergies Verified: Yes Medical History (Last Reviewed 06/22/20 @ 09:33 by Ayden Jean-Baptiste CRNA) Epistaxis not due to trauma (Acute) Otitis externa (Acute) Obesity (Chronic) Onset Date: ~2015 HTN (hypertension) (Chronic) Onset Date: Unknown HLD (hyperlipidemia) (Chronic) Onset Date: Unknown GERD (gastroesophageal reflux disease) (Chronic) Onset Date: Unknown Diabetes mellitus type 2 in obese (Chronic) Onset Date: Unknown Asthma (Chronic) Onset Date: Unknown Depression (Chronic) Onset Date: ~08/02/17 Anxiety (Chronic) Onset Date: ~08/02/17 Allergic rhinitis (Chronic) Onset Date: Unknown Cervical paraspinal muscle spasm (Acute) Cervical strain, acute (Acute) Chest pain (Acute) Viral syndrome (Acute) Chills (without fever) (Acute) UTI (urinary tract infection) (Acute) Hyperglycemia (Acute) GIB (gastrointestinal bleeding) (Acute) Diarrhea (Acute) Hypotension (Resolved) SOLO (acute kidney injury) (Acute) Hypertension (Chronic) T2DM (type 2 diabetes mellitus) (Chronic) TIA (transient ischemic attack) Onset Date: ~03/2016 confusion; MRI chronic ischemic micro vascular disease, US carotids not si gnificant; echo normal[[facility]] Wears dentures Wears eyeglasses Anemia Onset Date: Unknown Surgical History (Last Reviewed 06/22/20 @ 09:33 by Ayden Jean-Baptiste CRNA) H/O esophagogastroduodenoscopy Onset Date: ~03/05/09 Tinguely- reflux esophagitis, gastric polyp, hiatal hernia. History of arthroscopic surgery of shoulder Onset Date: ~2004 LEFT-Rashad History of cataract surgery Onset Date: Unknown History of colonoscopy Onset Date: 03/05/09 Tinguely-hyperplastic polyp. Diverticulosis, internal and external hemorrhoids. History of nasal surgery Onset Date: Unknown Henrich Family History (Last Reviewed 06/22/20 @ 09:33 by Ayden Jean-Baptiste CRNA) Father , age 58-[place] Heart disease Mother , age 88-old age Cancer unknown type Grandfather , Paternal-D.M Diabetes Brother Alive and well - Family Anesthesia History Family History:: no untoward family reactions to anesthesia - Airway/Neck/Teeth Within Normal Limits:: Yes Teeth Condition: none Neck Exam: full range of motion Mallampatti Score: 2 Thyromental (T-M) distance: > 6 cm Mandibulo Hyoid distance: > 3 cm - Respiratory Respiratory History: COPD Respiratory Physical: lungs clear Smoking Status: Former smoker Sleep Apnea currently treated: No Sleep Apnea by current assessment: No - Cardiovascular Cardiac History: CVA/stroke, hypertension Tolerate Activity: Poor Heart Sounds: S1 & S2, Regular - Gastrointestinal NPO since: [place] - Anesthesia Assessment and Plan ASA Class: PS, III Anesthesia Type Plan: MAC Planned difficult intubation/equipment available: No
--- NOTE | 2020-06-22 11:14 | ANES ---
Post Anesthesia Discharge - Transfer of Care Transfer of Care handoff given to nurse: Yes - Anesthesia Post Op Note Anesthesia Post Op Note: Returned to room 114
--- NOTE | 2020-06-22 11:15 | ANES ---
Post Anesthesia Assessment - Vital Signs Vitals: Last Vital Signs Temp 36.9 C 06/22/20 07:49 Pulse 83 06/22/20 09:08 Resp 16 06/22/20 07:49 BP 161/93 H 06/22/20 09:08 Pulse Ox 93 06/22/20 07:49 Airway Patency: Normal - Mental Status Level Of Consciousness: Drowsy - Pain Level Pain Score: 0 - N/V Assessment Nausea/Vomiting Presence: None Dehydration:: No
[2020-06-22] MEDS: FLUTICASONE PROPIONATE 120 SPRAY INHALER NS SCH (12:16)
[2020-06-22] MEDS: LISINOPRIL 40 MG TABLET PO SCH ×2 (13:18→20:32)
[2020-06-22] MEDS: buPROPion HCL 150 MG TAB.SR.24H PO SCH (13:19)
[2020-06-22] MEDS: metFORMIN HCL 500 MG TABLET PO SCH ×2 (13:19→17:19)
[2020-06-22] MEDS: ASPIRIN 81 MG TABLET.DR PO SCH (13:20)
[2020-06-22] MEDS: ACETAMINOPHEN 325 MG TABLET PO PRN (19:23)
[2020-06-22] MEDS: ROSUVASTATIN CALCIUM 20 MG TABLET PO SCH (20:32)
[2020-06-22] MEDS ORDERED: PANTOPRAZOLE SODIUM 20 MG TABLET.DR PO SCH (21:00)
[2020-06-22] MEDS ORDERED: ROSUVASTATIN CALCIUM 10 MG TABLET PO SCH (21:00)
[2020-06-23] MEDS: ACETAMINOPHEN 325 MG TABLET PO PRN (04:29)
[2020-06-23] MEDS: INSULIN LISPRO 100 UNITS/ML VIAL SC SCH ×4 (06:55→21:25)
[2020-06-23] MEDS: PANTOPRAZOLE SODIUM 40 MG TABLET.EC PO SCH (06:59)
[2020-06-23] MEDS: buPROPion HCL 150 MG TAB.SR.24H PO SCH (08:20)
[2020-06-23] MEDS: metFORMIN HCL 500 MG TABLET PO SCH ×2 (08:21→16:58)
[2020-06-23] MEDS: ASPIRIN 81 MG TABLET.DR PO SCH (08:21)
[2020-06-23] MEDS: FLUTICASONE PROPIONATE 120 SPRAY INHALER NS SCH (08:22)
[2020-06-23] MEDS: METOPROLOL TARTRATE 25 MG TABLET PO SCH ×2 (08:22→20:58)
[2020-06-23] MEDS: CALCIUM CARBONATE 500 MG TAB.CHEW PO SCH (08:23)
[2020-06-23] MEDS: POLYETHYLENE GLYCOL 3350 17 GM PACKET PO SCH (08:23)
[2020-06-23] MEDS: LISINOPRIL 40 MG TABLET PO SCH ×2 (08:24→20:59)
--- NOTE | 2020-06-23 20:03 | PN ---
Subjective - Date and Time Seen Date: 06/23/20 Time: 19:44 Subjective Narrative: Patient resting comfortably in bed. He denies any discomfort or pain at this time. Patient continues with some slurring of speech, left side upper and lower extremity weakness, and left side neglect. Patient currently on 81 mg aspirin. Patient also endorses difficulty with voiding, states he feels like he has to go but unable to do so. Blood pressure still slightly elevated, otherwise vitals are stable. Still on for permissive hypertension for greater than 48 hours, work on lowering it slowly in the next upcoming day or 2 but otherwise systolic pressures under 170- 180 is appropriate. Objective Objective Narrative: Patient denies weakness on his left side. Again patient does have some left side neglect. - Review of Systems Generalized/Overall Review: Denies: Weakness, Chills, Fever EENTM: Denies: Blurred Vision, Double Vision Respiratory: Reports: No Symptoms Reported Cardiac: Reports: No Symptoms Reported Abdominal: Reports: No Symptoms Reported Genitourinary Symptoms: Reports: No Symptoms Reported Musculoskeletal Complaints: Reports: No Symptoms Reported Neurological: Denies: Headache, Numbness, Seizure, Tingling, Weakness, Pre- existing Deficit Skin: Reports: No Symptoms Reported Endocrine: Reports: No Symptoms Reported - Vitals Vitals: Last Vital Signs Temp 36.3 C 06/23/20 17:48 Pulse 95 06/23/20 17:48 Resp 18 06/23/20 17:48 BP 158/102 H 06/23/20 17:48 Pulse Ox 95 06/23/20 17:48 - Exam Constitutional: Present: Alert, Oriented x3, Cooperative ENT Exam: Present: hearing grossly normal. Absent: nasal congestion, nasal drainage Neck: Present: non-tender, supple Respiratory: Present: lungs clear, normal breath sounds Cardiovascular/Chest: Present: regular rate, rhythm, no murmur Abdomen: Present: soft, nontender, nondistended Extremity: Present: non-tender. Absent: lower extremity edema Skin Exam: Present: normal color, warm/dry Neurologic: Present: motor weakness, other - Left-sided hemineglect, slurred speech. Absent: facial droop, sensory deficit Appearance: Present: impaired insight Eye contact: Present: cooperative. Absent: normal speech Assessment/Plan Plan Narrative: 64-year-old male with left-sided weakness, slurred speech, left hemineglect consistent symptomology with ischemic stroke identified on brain MRI. Patient currently to be evaluated by PT OT and speech. Patient had difficulty with swallowing thin liquids today, will switch to thickened liquids and pured diet until evaluation. Patient's blood pressure mildly elevated, will not adjust medications to allow for permissive hypertension. Patient was restarted on his lisinopril and metoprolol on day of admission. Patient currently taking baby aspirin. We will switch this over to full- strength aspirin and Plavix as patient symptoms again consistent with ischemic stroke patient has history of TIA. ABCD2 score greater/equal to answer check 4. Dual antiplatelet therapy indicated. Hypertensionallowing for permissive hypertension at this time. Diabetesrestart his home medications. Continue blood glucose monitoring AC at bedtime. Consistent carbohydrate diet again thickened and pured. Patient with urinary retention, bladder scan today showed greater than 425 cc of urine. Straight cath performed with greater than 400 cc urine relieved. We wi ll continue bladder scan every 6 hours and straight cath as needed. Nurse to call questions or concerns. - Problems/Diagnosis (1) Ischemic stroke Problem: Acute (2) History of TIA (transient ischemic attack) Problem: Acute (3) Impairment of balance Problem: Acute (4) Left hemiparesis Problem: Acute (5) HTN (hypertension) Problem: Chronic (6) HLD (hyperlipidemia) Problem: Chronic (7) T2DM (type 2 diabetes mellitus) Problem: Chronic Qualifiers: Diabetes mellitus group home insulin use: with group home use Diabetes mellitus complication status: with unspecified complications (8) Obesity Problem: Chronic
[2020-06-23] MEDS: ASPIRIN 325 MG TABLET.DR PO SCH (20:57)
[2020-06-23] MEDS: ROSUVASTATIN CALCIUM 20 MG TABLET PO SCH (20:57)
[2020-06-23] MEDS: CLOPIDOGREL BISULFATE 75 MG TABLET PO SCH (20:57)
[2020-06-24] MEDS: LISINOPRIL 40 MG TABLET PO SCH ×3 (06:40→20:30)
[2020-06-24] MEDS: METOPROLOL TARTRATE 25 MG TABLET PO SCH ×3 (06:41→20:30)
[2020-06-24] MEDS: PANTOPRAZOLE SODIUM 40 MG TABLET.EC PO SCH (06:42)
[2020-06-24] MEDS: INSULIN LISPRO 100 UNITS/ML VIAL SC SCH ×4 (06:53→20:37)
[2020-06-24] MEDS: ACETAMINOPHEN 325 MG TABLET PO PRN ×2 (06:56→20:31)
[2020-06-24] MEDS: buPROPion HCL 150 MG TAB.SR.24H PO SCH (08:42)
[2020-06-24] MEDS: POLYETHYLENE GLYCOL 3350 17 GM PACKET PO SCH (08:42)
[2020-06-24] MEDS: CLOPIDOGREL BISULFATE 75 MG TABLET PO SCH (08:43)
[2020-06-24] MEDS: ASPIRIN 325 MG TABLET.DR PO SCH (08:43)
[2020-06-24] MEDS: CALCIUM CARBONATE 500 MG TAB.CHEW PO SCH (08:44)
[2020-06-24] MEDS: metFORMIN HCL 500 MG TABLET PO SCH ×2 (08:44→16:48)
[2020-06-24] MEDS: FLUTICASONE PROPIONATE 120 SPRAY INHALER NS SCH (08:45)
[2020-06-24 11:05] LABS: Urine Appearance Clear (CLEAR); Urine Bilirubin 3 mg/dl (NEGATIVE); Urine Blood 5 /ul (NEGATIVE); Urine Color Yellow; Urine Ketone 15 mg/dL (NEGATIVE)
[2020-06-24 11:06] LABS: Urine Nitrite Negative (NEGATIVE); Urine Protein 100 mg/dL (NEGATIVE)
[2020-06-24 11:07] LABS: Urine Bacteria None Seen; Urine RBC 0-5 /hpf (0-5); Urine WBC 0-5 /hpf (0-5)
--- NOTE | 2020-06-24 19:59 | PN ---
Subjective - Date and Time Seen Date: 06/24/20 Time: 10:45 Subjective Narrative: Patient had no acute events overnight. Still with left sided weakness, mild left sided neglect, slurred speech. Vitals are stable. Still endorses difficulty voiding, requiring straight cath. UA unable to be obtained as of yet. Patient denies pain or discomfort. Objective - Review of Systems Generalized/Overall Review: Denies: Weakness, Chills, Fever EENTM: Reports: No Symptoms Reported Respiratory: Reports: No Symptoms Reported Cardiac: Reports: No Symptoms Reported Abdominal: Reports: No Symptoms Reported Genitourinary Symptoms: Reports: Urgency, Incontinent - at night Musculoskeletal Complaints: Reports: No Symptoms Reported Neurological: Denies: Headache, Anxiety, Tingling, Weakness - Vitals Vitals: Last Vital Signs Temp 36.3 C 06/24/20 18:22 Pulse 88 06/24/20 18:22 Resp 20 06/24/20 18:22 BP 156/91 H 06/24/20 18:22 Pulse Ox 94 06/24/20 18:22 - Abnormal Lab Findings Abnormal Lab Findings: Abnormal Lab Results 06/24/20 Range/Units 10:15 Urine Protein 100 H (NEGATIVE) mg/dL Urine Blood 5 H (NEGATIVE) /ul Urine Bilirubin 3 H (NEGATIVE) mg/dl Urine Ictotest Positive H (NEGATIVE) Prot Sulfosalicylic Acd 4+ H (0) mg/dL Urine Urobilinogen 2.0 H (NORMAL) EU/dl - Exam Constitutional: Present: Alert, Oriented x3, Cooperative, Mild distress - feels like he has to urinate Respiratory: Present: lungs clear, normal breath sounds Cardiovascular/Chest: Present: regular rate, rhythm, no murmur Abdomen: Present: soft, nontender, nondistended Skin Exam: Present: normal color, warm/dry Neurologic: Present: motor weakness, other - slurred speech, left sided neglect. Absent: facial droop, sensory deficit Appearance: Present: impaired insight Assessment/Plan Plan Narrative: 64-year-old male with left-sided weakness, slurred speech, left hemineglect con sistent symptomology with ischemic stroke identified on brain MRI. Patient currently to be evaluated by PT OT and speech. Patient switched to thickened liquids and pured diet. Patient taking plavix and asa for dual antiplatelet therapy. Patient needs echocardiogram and carrotid doppler study, can likely be done in the outpatient setting if this hasn't already been done with previous TIA. Patient's blood pressure mildly elevated, will adjust medications today to slowly try to obtain better control. Patient was restarted on his lisinopril and metoprolol on day of admission. ABCD2 score greater/equal to 4. Dual antiplatelet therapy indicated. Diabetesrestart his home medications. Continue blood glucose monitoring AC at bedtime. Consistent carbohydrate diet again thickened and pured. Patient with urinary retention still. UA ordered. Continue with bladder scan every 6 hours and straight cath as needed. Nurse to call questions or concerns. 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
[2020-06-24] MEDS: ROSUVASTATIN CALCIUM 20 MG TABLET PO SCH (20:31)
[2020-06-25] MEDS: INSULIN LISPRO 100 UNITS/ML VIAL SC SCH ×4 (07:32→21:39)
[2020-06-25] MEDS: PANTOPRAZOLE SODIUM 40 MG TABLET.EC PO SCH (07:32)
[2020-06-25] MEDS: METOPROLOL TARTRATE 25 MG TABLET PO SCH ×2 (09:27→21:35)
[2020-06-25] MEDS: LISINOPRIL 40 MG TABLET PO SCH ×2 (09:27→21:34)
[2020-06-25] MEDS: ASPIRIN 325 MG TABLET.DR PO SCH (09:27)
[2020-06-25] MEDS: FLUTICASONE PROPIONATE 120 SPRAY INHALER NS SCH (09:27)
[2020-06-25] MEDS: CALCIUM CARBONATE 500 MG TAB.CHEW PO SCH (09:27)
[2020-06-25] MEDS: buPROPion HCL 150 MG TAB.SR.24H PO SCH (09:27)
[2020-06-25] MEDS: metFORMIN HCL 500 MG TABLET PO SCH ×3 (09:27→17:46)
[2020-06-25] MEDS: CLOPIDOGREL BISULFATE 75 MG TABLET PO SCH (09:27)
[2020-06-25] MEDS: POLYETHYLENE GLYCOL 3350 17 GM PACKET PO SCH (09:27)
--- NOTE | 2020-06-25 09:30 | PN ---
Subjective - Date and Time Seen Date: 06/25/20 Time: :22 Subjective Narrative: I have tailbone pain, from sitting in chair. Objective Objective Narrative: 64-year-old male admitted for an ischemic CVA was evaluated at bedside was found to be afebrile and in no acute distress. Patient's only complaint this morning is tailbone pain from sitting in his arm chair, so nursing staff was notified to go and assist him in getting into bed. He has been undergoing in-hospital rehabilitation with physical therapy and Occupational Therapy and has a pending speech and swallow evaluation. Patient continues to present left hemiparesis, left vern-neglect, and slurred speech although I do not think the speech pathology is new for him. He was started on full-strength aspirin and Plavix given his current diagnosis of ischemic stroke and his previous TIA. During the weekend he also had to undergo urinary catheterization for urinary retention, however the patient does not report any discomfort or sensation of a full bladder. We will continue to evaluate this closely. Currently we are working on discharge planning and his family is in agreement that he will go to a care center where he will continue his rehab, once we find placement we will discharge patient with all the necessary orders. - Review of Systems Generalized/Overall Review: Reports: No Symptoms Reported EENTM: Reports: Other - Loss of vision on left side Respiratory: Reports: No Symptoms Reported Cardiac: Reports: No Symptoms Reported Abdominal: Reports: No Symptoms Reported Genitourinary Symptoms: Reports: No Symptoms Reported Musculoskeletal Complaints: Reports: No Symptoms Reported Neurological: Reports: Pre-existing Deficit Skin: Reports: No Symptoms Reported Endocrine: Reports: No Symptoms Reported - Vitals Vitals: Last Vital Signs Temp 37.4 C 06/25/20 06:46 Pulse 80 06/25/20 06:46 Resp 29 H 06/25/20 06:46 BP 150/87 H 06/25/20 06:46 Pulse Ox 94 06/25/20 06:46 - Abnormal Lab Findings Abnormal Lab Findings: Abnormal Lab Results 06/24/20 Range/Units 10:15 Urine Protein 100 H (NEGATIVE) mg/dL Urine Blood 5 H (NEGATIVE) /ul Urine Bilirubin 3 H (NEGATIVE) mg/dl Urine Ictotest Positive H (NEGATIVE) Prot Sulfosalicylic Acd 4+ H (0) mg/dL Urine Urobilinogen 2.0 H (NORMAL) EU/dl - Exam Constitutional: Present: Alert, Oriented x3, Cooperative, Well developed, No distress, Morbidly obese ENT Exam: Present: normal ENT inspection, hearing grossly normal, pharynx normal Neck: Present: non-tender, supple, normal inspection, trachea midline Breasts: Present: Exam deferred Respiratory: Present: chest non-tender, lungs clear, normal breath sounds, no respiratory distress, no accessory muscle use Cardiovascular/Chest: Present: normal peripheral pulses, regular rate, rhythm, no chest tenderness, no edema, no gallop, no JVD, no murmur, no rub Abdomen: Present: Normal bowel sounds, soft, nontender, nondistended, no rebound tenderness, no hepatospenomegaly, no masses, obese /Rectal: Present: Exam deferred Extremity: Present: normal range of motion, non-tender, normal inspection, no pedal edema, no calf tenderness, normal capillary refill, pelvis stable Skin Exam: Present: normal color, warm/dry, no cyanosis Lymphatic: Present: no adenopathy Neurologic: Present: alert, oriented x 3, 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 In the meantime we will continue to monitor the patient closely. - Problems/Diagnosis (1) Injury of face and neck Problem: Acute (2) Traumatic injury of head with altered mental status Problem: Acute (3) Obesity Problem: Chronic (4) HTN (hypertension) Problem: Chronic (5) Diabetes mellitus type 2 in obese Problem: Chronic (6) Asthma Problem: Chronic (7) Falls Problem: Acute (8) Impairment of balance Problem: Acute (9) Left hemiparesis Problem: Acute (10) Altered mental status Problem: Acute (11) CVA (cerebral vascular accident) Problem: Acute Qualifiers: CVA mechanism: occlusion Laterality of affected vessel: right (12) Hemianopsia Problem: Acute
[2020-06-25] MEDS: NYSTATIN 15 APPL BTL TP SCH ×2 (11:43→21:36)
[2020-06-25] MEDS: ROSUVASTATIN CALCIUM 20 MG TABLET PO SCH (21:34)
[2020-06-26] MEDS: INSULIN LISPRO 100 UNITS/ML VIAL SC SCH (07:19)
[2020-06-26] MEDS: PANTOPRAZOLE SODIUM 40 MG TABLET.EC PO SCH (07:20)
[2020-06-26] MEDS: ASPIRIN 325 MG TABLET.DR PO SCH (08:08)
[2020-06-26] MEDS: buPROPion HCL 150 MG TAB.SR.24H PO SCH (08:08)
[2020-06-26] MEDS: METOPROLOL TARTRATE 25 MG TABLET PO SCH (08:08)
[2020-06-26] MEDS: CLOPIDOGREL BISULFATE 75 MG TABLET PO SCH (08:08)
[2020-06-26] MEDS: LISINOPRIL 40 MG TABLET PO SCH (08:08)
[2020-06-26] MEDS: CALCIUM CARBONATE 500 MG TAB.CHEW PO SCH (08:08)
[2020-06-26] MEDS: metFORMIN HCL 500 MG TABLET PO SCH (08:08)
[2020-06-26] MEDS: FLUTICASONE PROPIONATE 120 SPRAY INHALER NS SCH (08:09)
[2020-06-26] MEDS: POLYETHYLENE GLYCOL 3350 17 GM PACKET PO SCH (08:10)
[2020-06-26] MEDS: NYSTATIN 15 APPL BTL TP SCH (08:10)
[2020-06-26] MEDS ORDERED: METOPROLOL TARTRATE 25 MG TABLET ONE (08:55)
[2020-06-26] MEDS ORDERED: METOPROLOL TARTRATE 50 MG TABLET PO SCH ×2 (09:00→21:00)
--- NOTE | 2020-06-26 09:01 | DS ---
(1) Injury of face and neck Problem: Acute (2) Traumatic injury of head with altered mental status Problem: Acute (3) Obesity Problem: Chronic (4) HTN (hypertension) Problem: Chronic (5) Diabetes mellitus type 2 in obese Problem: Chronic (6) Asthma Problem: Chronic (7) Falls Problem: Acute (8) Impairment of balance Problem: Acute (9) Left hemiparesis Problem: Acute (10) Altered mental status Problem: Acute (11) CVA (cerebral vascular accident) Problem: Acute Qualifiers: CVA mechanism: occlusion Laterality of affected vessel: right (12) Hemianopsia Problem: Acute Date of Discharge:: 06/26/20 Hospital Course: 64-year-old male admitted for acute ischemic CVA with left hemiparesis was evaluated at bedside and was found to be afebrile and in no acute distress. Patient is showing significant clinical improvement, he is gaining strength in his left upper and lower extremity according to the physical therapist. This morning he was able to open his [id number] packets as part of his occupational therapy. He was provided with encouragement to continue with his rehabilitation in order to regain as much function as he can. He was also started on dual antiplatelet therapy with Plavix and aspirin as recommended by guidelines and underwent a carotid ultrasound and echocardiogram. The carotids only demonstrated minimal plaque buildup but no stenosis and echo results are pending. His antihypertensive was increased this morning for optimal control of his blood pressure, we will continue to monitor this closely. Patient had reported raad. knee pain that started after his fall, but Xrays were negative for any acute findings. Discharge planning is underway and the plan is to discharge patient to a jail or care center where he can continue his rehab with physical therapy occupational therapy and speech. Insurance authorization is pending. Once we have finalized placement for him we will discharge the patient to the center. Procedures Performed: none Results and Findings: Lab Pending Results 06/21/20 21:42: WBC 7.5, RBC 5.49, Hgb 12.5 L, Hct 40.5 L, MCV 73.8 L, MCH 22.8 L, MCHC 30.9 L, RDW 14.6 H, Plt Count 205, MPV 9.3, Immature Gran % (Auto) 0.10, Immature Gran # (Auto) 0.01, Neutrophils % 76.9 H, Lymphocytes % 15.9 L, Monocytes % 6.8, Eosinophils % 0.0, Basophils % 0.3, Nucleated RBC % 0.0, Neutrophils # 5.8, Lymphocytes # 1.19 L, Monocytes # 0.5, Eosinophils # 0.0, Absolute Basophils 0.0 06/21/20 21:42: Sodium 135, Plasma Sodium 136, Potassium 3.5, Chloride 100, Carbon Dioxide 23.4 L, Anion Gap 15.1 H, BUN 13, Creatinine 1.11, Est GFR (Non- Af Amer) 70, BUN/Creatinine Ratio 11.7, Random Glucose 177 H, Calcium 9.5, Calcium Adj for Albumin 9.7, Total Bilirubin 0.8, AST 24, ALT 16 L, Alkaline Phosphatase 72, Troponin I 0.022, B-Natriuretic Peptide 474 H, Total Protein 7.6, Albumin 3.3 L 06/21/20 22:29: pCO2 31.5 L, pO2 69.4 L, HCO3 21.7, Total CO2 22.7, Base Excess -1.3, ABG pH 7.46 H, ABG O2 Sat (Measured) 94.9 06/21/20 22:40: Urine Color Dark yellow, Urine Appearance Clear, Urine pH 6.0, Ur Specific [place] >=1.030, Urine Protein 100 H, Urine Glucose (UA) Negative, Urine Ketones 15, Urine Blood 25 H, Urine Nitrate Negative, Urine Bilirubin 1 H, Urine Ictotest Negative, Prot Sulfosalicylic Acd 4+ H, Urine Urobilinogen Normal, Ur Leukocyte Esterase Negative, Urine RBC 0-5, Urine WBC None seen, Ur Epithelial Cells 0-5, Urine Bacteria None seen, Urine Culture Comments No culture indicated 06/21/20 22:40: Urine Opiates Screen Negative, Barbiturate Screen Negative, Ur Phencyclidine Scrn Negative, Urine Amphetamine Negative, U Benzodiazepines Scrn Negative, Urine Cocaine Screen Negative, Urine Marijuana (THC) Negative 06/22/20 : SARS-CoV-2 (PCR) Not detected 06/24/20 10:15: Urine Color Yellow, Urine Appearance Clear, Urine pH 6.0, Ur Specific [place] 1.030, Urine Protein 100 H, Urine Glucose (UA) Negative, Urine Ketones 15, Urine Blood 5 H, Urine Nitrate Negative, Urine Bilirubin 3 H, Urine Ictotest Positive H, Prot Sulfosalicylic Acd 4+ H, Urine Urobilinogen 2.0 H, Ur Leukocyte Esterase Negative, Urine RBC 0-5, Urine WBC 0-5, Ur Epithelial Cells None seen, Urine Bacteria None seen, Urine Culture Comments No culture indicated Discharge Location: Other - [facility] Disposition: SNF Condition: Stable Level of Care: SNF Discharge Activity: Activity as tolerated Discharge Diet: Consistent carbs Long-Term Therapy: Physical Therapy, Occupation Therapy, Speech Therapy Referrals: Farzana Cueva MD [Primary Care Provider] - Additional Patient Instructions (free text): To [facility] for therapies to evaluate and treat, PT, OT and ST. Please call and fax discharge orders to them. Prescriptions (Any new or edited meds): Aspirin [Aspirin Enteric Coated] 325 mg PO DAILY 90 Days #90 tablet. Transmission Status: Received by [facility] Metoprolol Tartrate [Lopressor] 50 mg PO BID #60 tab Transmission Status: Received by [facility] Nystatin [Mycostatin Powder] 1 appl TOPICAL BID 15 Days #1 btl Transmission Status: Received by [facility] Clopidogrel Bisulfate [Plavix] 75 mg PO DAILY #90 tab Transmission Status: Received by [facility] Complete Home Medications List: Complete Home Medication List: Docusate Sodium [Colace] 100 mg PO DAILY 05/31/16 Polyethylene Glycol 3350 [Miralax] 17 gm PO DAILY 05/31/16 Calcium Carbonate [Calcium] 500 mg PO BID 02/09/17 albuterol sulfate 90 mcg/actuation aerosol inhaler 2 inh IH QID PRN #18 g 07/05/18 fluticasone propionate 50 mcg/actuation nasal spray,suspension 1 spray LISBETH DAILY PRN #47.4 g 03/02/20 atorvastatin 40 mg tablet 40 mg PO DAILY #90 tab 06/07/20 Lisinopril [Zestril] 40 mg PO BID 06/22/20 Pantoprazole Sodium 40 mg PO DAILY 06/22/20 buPROPion HCL [Wellbutrin Xl] 300 mg PO DAILY 06/22/20 metFORMIN HCL [Metformin HCl] 500 mg PO BID 06/22/20 Aspirin [Aspirin Enteric Coated] 325 mg PO DAILY 90 Days #90 tablet. 06/26/20 Clopidogrel Bisulfate [Plavix] 75 mg PO DAILY #90 tab 06/26/20 Metoprolol Tartrate [Lopressor] 50 mg PO BID #60 tab 06/26/20 Nystatin [Mycostatin Powder] 1 appl TOPICAL BID 15 Days #1 btl 06/26/20 Forms: Patient Portal Registration
[2020-06-26] MEDS ORDERED: METOPROLOL TARTRATE 25 MG TABLET PO ONE (09:15)
[2020-06-26 14:37] VITALS: BP 163/82
--- NOTE | 2020-07-03 10:05 | ECHO ---
This report is available in the EMR
== END 2020-06-26 12:00 | DRG 65 ==
LOC: MS 21:19 → ER 21:19 → MS 06-22 00:05
PROVIDERS: ADMIT Internal Medicine; ATTEND Family Medicine